=== PATIENT | male | born 1975 | race Caucasian/White ===

== ENCOUNTER 2017-02-25 06:12 | Inpatient (IN) | payer BC, OTHER ==
[2017-02-25] VITALS (28 sets, daily range): BP systolic 94–155; BP diastolic 69–96; PULSE 65–108; TEMP 36.7–37; O2SAT 94–98; Ht 177.8 cm; Wt 100.6 kg
[~2017-02-25] VITALS: Ht 177.8 cm; Wt 100.6 kg
[~2017-02-25 06:12] MED LIST: ALLO300T2 PO; HYDR-4715 PO; PRED-301 PO; SIMV20TA2 PO
[2017-02-25] MEDS ORDERED: DEXAMETHASONE INJ 10 MG in SYRINGE 0 ML IV STA (06:34)
[2017-02-25] MEDS ORDERED: SODIUM CHLORIDE 0.9% 1000ML 1,000 ML IV STA (06:34)
[2017-02-25] MEDS ORDERED: DiphenhydrAMINE HCL 50 MG/ML VIAL IV STA (06:34)
[2017-02-25] MEDS ORDERED: FAMOTIDINE 20MG/5ML IV PUSH IV STA (06:34)
--- NOTE | 2017-02-25 06:37 | EMERGENCY ROOM VISIT NOTE ---
History Report prepared by Princess: Shivam Echeverria Under the Supervision of: Dr. Zohaib Olmos M.D. First contact with patient: 06:25 Chief Complaint: THROAT PAIN/INJURY Stated Complaint: THROAT SWELLING,GETTING WORSE History of Present Illness The patient is a 42 year old male who presents to the Emergency Room with complaints of worsening throat swelling this morning. He says that he is having trouble speaking. The patient notes that he is on Lisinopril. The patient adds that he has had 2 episodes like this in the past, and has been seen for it, and was prescribed an EpiPen and daily Verena. He notes that he did not use his EpiPen this morning, but did take Benadryl and Prednisone an hour ago. The patient has not taken any Ibuprofen in the past 24 hours. He says that he is in end stage renal disease, and is close to being on dialysis. He notes that he is a bit short of breath due to the swelling, but it is not too bad. Source of History: patient Onset: This morning Position: throat Symptom Intensity: has had 2 episodes like this in past Quality: other (swelling) Timing: worsening Associated Symptoms: + SOB Note: Associated symptoms: trouble speaking. Review of Systems See HPI for pertinent positives & negatives. A total of 10 systems reviewed and were otherwise negative. Past Medical & Surgical Medical Problems: (1) Chronic kidney disease Family History Cancer FH: hypertension Heart disease Lung disease Social History Smoking Status: Never Smoker Marital Status: Housing Status: lives with family Occupation Status: employed Current/Historical Medications Scheduled Allopurinol (Zyloprim), 300 MG PO DAILY Epoetin Aiden (Procrit), 10,000 UNITS SQ WK Furosemide (Lasix), Unknown Dose PO 3XWK Hydralazine Hcl (Apresoline), Unknown Dose PO BID Prednisone (Prednisone), 5 MG PO DAILY Simvastatin (Zocor), 20 MG PO QPM Sodium Bicarbonate (Antacid) (Sodium Bicarbonate), 1 TAB PO BID Allergies Coded Allergies: NSAIDs (Verified Adverse Reaction, Severe, CHRONIC KIDNEY DISEASE, ) Physical Exam Vital Signs Date Time Temp Pulse Resp B/P (MAP) Pulse Ox O2 Delivery O2 Flow Rate FiO2 02/25/17 08:16 78 20 135/92 96 Room Air 02/25/17 08:09 98 Room Air 02/25/17 07:39 65 18 98 Room Air 02/25/17 07:25 73 22 131/85 97 Room Air 02/25/17 06:54 72 02/25/17 06:54 98 Room Air 02/25/17 06:28 90 21 136/91 96 Room Air 02/25/17 06:16 36.4 85 22 156/90 95 Room Air Physical Exam GENERAL: Patient is a ill-appearing well-nourished 42 year old male. HEAD: Normocephalic atraumatic EYES: Ocular movements intact pupils equal and react to light OROPHARYNX: Uvula is huge, mucous membranes are moist. NECK: Supple no nuchal rigidity CHEST: Good equal expansion LUNGS: Clear and equal to auscultation CARDIAC: Normal S1 and S2 ABDOMEN: Soft nontender no guarding BACK: No CVA tenderness EXTREMITIES: No pain upon palpation normal muscle strength in all groups no clubbing cyanosis or edema NEURO: Patient is following commands and answering questions appropriately. Alert and oriented x3 Cranial Nerves 2-12 grossly intact Medical Decision & Procedures ER Provider Diagnostic Interpretation: Radiology results as stated below per my review and radiologist interpretation: SOFT TISSUE NECK CLINICAL HISTORY: Pt c/o throat swelling COMPARISON STUDY: None. FINDINGS: AP and lateral views of the neck. Prevertebral soft tissues and the epiglottis are normal in thickness. There is bilateral palatine tonsillar enlargement. There appears to be thickening of the soft palate. No radiopaque foreign bodies. The trachea is midline and appears patent. IMPRESSION: Thickening of the bilateral palatine tonsils and soft palate. This favors a tonsillitis. Electronically signed by: Gordo Christine M.D. 02/25/2017 7:47 AM Dictated Date/Time: 02/25/2017 7:46 AM CHEST ONE VIEW PORTABLE HISTORY: Pt c/o throat swelling COMPARISON: Chest 03/16/2016. FINDINGS: The lungs are clear. Cardiac silhouette is normal in size. No pleural effusions. No pneumothorax. Low lung volumes. IMPRESSION: No acute process. Electronically signed by: Gordo Christine M.D. 02/25/2017 7:48 AM Dictated Date/Time: 02/25/2017 7:47 AM Laboratory Results 02/25/17 06:46 Red Blood Count 3.21, Mean Corpuscular Volume 90.3, Mean Corpuscular Hemoglobin 29.3, Mean Corpuscular Hemoglobin Concent 32.4, Mean Platelet Volume 9.1, Neutrophils (%) (Auto) 74.5, Lymphocytes (%) (Auto) 15.1, Monocytes (%) (Auto) 4.2, Eosinophils (%) (Auto) 4.5, Basophils (%) (Auto) 0.6, Neutrophils # (Auto) 9.23, Lymphocytes # (Auto) 1.88, Monocytes # (Auto) 0.52, Eosinophils # (Auto) 0.56, Basophils # (Auto) 0.08 02/25/17 06:46 Test 02/25/17 06:46 White Blood Count 12.41 K/uL (4.8-10.8) Red Blood Count 3.21 M/uL (4.7-6.1) Hemoglobin 9.4 g/dL (14.0-18.0) Hematocrit 29.0 % (42-52) Mean Corpuscular Volume 90.3 fL (80-100) Mean Corpuscular Hemoglobin 29.3 pg (25-34) Mean Corpuscular Hemoglobin Concent 32.4 g/dl (32-36) Platelet Count 243 K/uL (130-400) Mean Platelet Volume 9.1 fL (7.4-10.4) Neutrophils (%) (Auto) 74.5 % Lymphocytes (%) (Auto) 15.1 % Monocytes (%) (Auto) 4.2 % Eosinophils (%) (Auto) 4.5 % Basophils (%) (Auto) 0.6 % Neutrophils # (Auto) 9.23 K/uL (1.4-6.5) Lymphocytes # (Auto) 1.88 K/uL (1.2-3.4) Monocytes # (Auto) 0.52 K/uL (0.11-0.59) Eosinophils # (Auto) 0.56 K/uL (0-0.5) Basophils # (Auto) 0.08 K/uL (0-0.2) RDW Standard Deviation 47.5 fL (36.4-46.3) RDW Coefficient of Variation 14.4 % (11.5-14.5) Immature Granulocyte % (Auto) 1.1 % Immature Granulocyte # (Auto) 0.14 K/uL (0.00-0.02) Anion Gap 13.0 mmol/L (3-11) Estimated GFR () 12.9 Estimated GFR (Non- 11.1 BUN/Creatinine Ratio 15.2 (10-20) Calcium Level 9.5 mg/dl (8.5-10.1) Phosphorus Level 4.5 mg/dl (2.5-4.9) Albumin 3.4 gm/dl (3.4-5.0) Labs reviewed by ED physician. Medications Administered Medications (Trade) Dose Ordered Sig/Sheron Route Start Time Stop Time Status Last Admin Dose Admin Dexamethasone Sodium Phosphate 10 mg/Syringe 2.5 ml @ 1 mls/min NOW STAT IV 02/25/17 06:34 02/25/17 06:38 DC 02/25/17 06:43 1 MLS/MIN Famotidine (Pepcid 20mg Iv Push) 20 mg ONE STAT IV 02/25/17 06:34 02/25/17 06:39 DC 02/25/17 06:47 20 MG Diphenhydramine HCl (Benadryl Inj) 25 mg NOW STAT IV 02/25/17 06:34 02/25/17 06:39 DC 02/25/17 06:45 25 MG Sodium Chloride 1,000 ml @ 999 mls/hr Q1H1M STAT IV 02/25/17 06:34 02/25/17 07:34 DC 02/25/17 06:52 999 MLS/HR Racepinephrine (Raccemic Epinephrine 2.25% 0.5ML Neb) 0.5 ml NOW STAT INH 02/25/17 07:19 02/25/17 07:20 DC 02/25/17 07:39 0.5 ML ED Course 0632: Past medical records reviewed. The patient was evaluated in room A4B. A complete history and physical examination was performed. 0634: Ordered NSS 1000 ml @ 999 mls/hr IV, Benadryl Inj 25 mg IV, Pepcid 20mg IV Push 20 mg, Dexamethasone Sodium Phosphate 10mg/Syringe 2.5 ml @ 1 mls/min IV. 0649: I reevaluated and updated the patient. 0718: I discussed the patient with Dr. Irvin Clarke spar cap beveler. 0719: Ordered Raccemic Epinephrine 2.25% 0.5ML Neb 0.5 ml INH. 0725: I reevaluated and updated the patient. He is resting and doing a bit better. The patient verbally expressed understanding and agreement of the treatment plan. He will be evaluated for further treatment in the ICU. 0728: I discussed the patient with Dr. Jakub Clarke nephrology. 0730: I discussed the patient with Dr. Oscar CARY critical care - he will evaluate the patient for further treatment. Medical Decision Differential diagnosis: Etiologies such as infections, reactive airway disease, pneumonia, pneumothorax , COPD, CHF, cardiac ischemia, pulmonary embolism, musculoskeletal, gastrointestinal, as well as others were entertained. This is a 42-year-old male who presents emergency department complaining of severe swelling to his uvula. The patient is on an LEATHA inhibitor and reports he is had previous swelling before to his lips. Because of the patient's past medical history as well as his presentation a type and screen was obtained. In addition his creatinine appears to be 5 and appears to be above his baseline. An IV was established, the patient was given normal saline bolus, Decadron, Benadryl and Pepcid. Due to the nature the presentation I did discuss the case with the ICU and the patient received racemic epinephrine. He was also discussed with the hospitalist service as well as nephrology. Patient was in agreement with the treatment plan. Consults Time Called: 0715 Consulting Physician: Dr. Irvin Clarke spar cap beveler Returned Call: 0718 I discussed the patient with Dr. Irvin Clarke spar cap beveler. Additional Consults: Time Called: 07 Consulted Physician: Dr. Jakub Clarke nephrology Returned Call: 0728 Additional Comments: I discussed the patient with Dr. Jakub Clarke nephrology. Time Called: 07 Consulted Physician: Dr. Oscar CARY critical care Returned Call: 0730 Additional Comments: I discussed the patient with Dr. Oscar CARY critical care - he will evaluate the patient for further treatment. Impression Primary Impression: Angioedema Critical Care I have personally spent greater than 30 minutes of critical care time in the direct management of this patient. This includes bedside care, interpretation of diagnostic studies, and testing, discussion with consultants, patient, and family members, and other required patient management activities. This 30 minutes is in excess of all separately billable procedures. Scribe Attestation The scribe's documentation has been prepared under my direction and personally reviewed by me in its entirety. I confirm that the note above accurately reflects all work, treatment, procedures, and medical decision making performed by me. Departure Information Dispostion Being Evaluated By Hospitalist (to ICU) Referrals Austyn Leo M.D. (PCP) Patient Instructions My [facility] Problem Qualifiers Primary Impression: Angioedema Encounter type: initial encounter Qualified Codes: T78.3XXA - Angioneurotic edema, initial encounter
[2017-02-25] MEDS ORDERED: DEXAMETHASONE SOD INJ 4 MG/ML VIAL ONE (06:40)
[2017-02-25 06:57] LABS: BASO % 0.6 %; BASO ABS # 0.08 K/uL (0-0.2); COMPLETE YES; EOS % 4.5 %; IG% 1.1 %; LYMPH % 15.1 %; LYMPH ABS # 1.88 K/uL (1.2-3.4); MEAN CELL VOLUME 90.3 fL (80-100); MEAN CORPUSCULAR HEMOGLOBIN 29.3 pg (25-34); MEAN CORPUSCULAR HGB CONC 32.4 g/dl (32-36); MEAN PLATELET VOLUME 9.1 fL (7.4-10.4); MONO % 4.2 %; NEUT % 74.5 %; PLATELET COUNT 243 K/uL (130-400); RED BLOOD COUNT 3.21 M/uL (4.7-6.1); WHITE BLOOD COUNT 12.41 K/uL (4.8-10.8)
[2017-02-25] MEDS ORDERED: RACEPINEPHRINE 2.25% NEBU SOLN 0.5 ML VIAL INH STA (07:19)
[2017-02-25 07:24] LABS: BLOOD UREA NITROGEN 88 mg/dl (7-18); BUN/CREATININE RATIO 15.2 (10-20); CALCIUM 9.5 mg/dl (8.5-10.1); CARBON DIOXIDE 17 mmol/L (21-32); CHLORIDE 111 mmol/L (98-107); CREATININE 5.82 mg/dl (0.60-1.40); GLUCOSE 90 mg/dl (70-99); PHOSPHORUS 4.5 mg/dl (2.5-4.9); POTASSIUM 4.6 mmol/L (3.5-5.1); SODIUM 140 mmol/L (136-145)
--- NOTE | 2017-02-25 07:49 | DIAGNOSTIC IMAGING REPORT ---
SOFT TISSUE NECK CLINICAL HISTORY: Pt c/o throat swelling COMPARISON STUDY: None. FINDINGS: AP and lateral views of the neck. Prevertebral soft tissues and the epiglottis are normal in thickness. There is bilateral palatine tonsillar enlargement. There appears to be thickening of the soft palate. No radiopaque foreign bodies. The trachea is midline and appears patent. IMPRESSION: Thickening of the bilateral palatine tonsils and soft palate. This favors a tonsillitis. Electronically signed by: Gordo Chritsine M.D. 02/25/2017 7:47 AM Dictated Date/Time: 02/25/2017 7:46 AM
--- NOTE | 2017-02-25 07:50 | DIAGNOSTIC IMAGING REPORT ---
CHEST ONE VIEW PORTABLE HISTORY: Pt c/o throat swelling COMPARISON: Chest 03/16/2016. FINDINGS: The lungs are clear. Cardiac silhouette is normal in size. No pleural effusions. No pneumothorax. Low lung volumes. IMPRESSION: No acute process. Electronically signed by: Gordo Christine M.D. 02/25/2017 7:48 AM Dictated Date/Time: 02/25/2017 7:47 AM
[2017-02-25] MEDS ORDERED: FURO20TA PO (07:55)
[2017-02-25] MEDS ORDERED: EPGI10M SQ (07:57)
[2017-02-25] MEDS ORDERED: SODI650T8 PO (07:57)
[2017-02-25] MEDS ORDERED: NITROGLYCERIN 0.4 MG SL PER TAB CHARGE SL PRN (08:30)
[2017-02-25] MEDS ORDERED: FAMOTIDINE IV INJ 20 MG in DEXTROSE 5% 100ML 100 ML IV SCH (08:30)
[2017-02-25] MEDS ORDERED: DiphenhydrAMINE HCL 50 MG/ML VIAL IV PRN (08:30)
[2017-02-25] MEDS ORDERED: SIMV40TA4 PO (09:02)
[2017-02-25] MEDS ORDERED: FEXO1TAB46 PO (09:02)
[2017-02-25] MEDS ORDERED: BENA10TA PO (09:02)
[2017-02-25] MEDS ORDERED: DIPH25CA65 PO (09:02)
[2017-02-25] MEDS ORDERED: FURO-85 PO (09:11)
[2017-02-25] MEDS: ALLOPURINOL 300 MG TAB PO SCH (10:46)
[2017-02-25] MEDS: CETIRIZINE HCL 10 MG TAB PO SCH (10:46)
[2017-02-25] MEDS: SODIUM BICARBONATE 650 MG TAB PO SCH ×2 (10:46→20:34)
[2017-02-25] MEDS: HydrALAZINE 10 MG TAB PO SCH ×2 (10:47→20:34)
--- NOTE | 2017-02-25 11:04 | HISTORY & PHYSICAL EXAMINATION ---
DATE OF ADMISSION: 02/25/2017 CHIEF COMPLAINT: Angioedema. HISTORY OF PRESENT ILLNESS: This is a 42-year-old male with a past medical history significant for MPGN with type 1 chronic glomerulonephritis, chronic kidney disease stage V, history of anemia due to chronic kidney disease, history of angioedema, history of allergic rhinitis, history of hypertension, hyperlipidemia, and gouty arthropathy, who presents with angioedema. The patient last night felt swelling in the throat and was having somewhat difficulty speaking and shortness of breath and came to the ER. In the ER, he was given Decadron and Benadryl and currently his symptoms improved, he is breathing okay and his speech has improved, but he still has some difficulty swallowing. The patient says he had couple of episodes of lip swelling in the past, thought to be secondary to from his benazepril medication, but since off of benazepril making his blood pressure difficult to control. He was placed back on benazepril and also placed on Verena and Benadryl p.r.n. and epinephrine injections p.r.n. Last night, he did not take any medication and he just came to the ER. Currently, resting comfortably and hemodynamically stable. Denies any headaches or dizziness. No blurred vision, no cough, no nausea, no vomiting, no chest pain, no abdominal pain, no fever, and no chills. Normal bowel and bladder movements. Resting comfortably and hemodynamically stable. ALLERGIES: NSAIDS. PAST MEDICAL HISTORY: As mentioned above. PAST SURGICAL HISTORY: removal of basal cell skin lesions and right kidney biopsy. MEDICATIONS: The patient is on benazepril 10 mg p.o. b.i.d.; Procrit 1000 units once a week; hydralazine 10 mg p.o. b.i.d.; sodium bicarbonate 650 mg p.o. b.i.d.; allopurinol 300 mg p.o. daily; Lasix 20 mg p.o. once daily on Sunday, Sunday and Sunday; prednisone 5 mg p.o. daily; simvastatin 40 mg p.o. daily; fexofenadine 180 mg p.o. daily; Benadryl 50 mg p.r.n. allergic reaction; and epinephrine for severe allergic reaction. FAMILY HISTORY: Significant for sister has seasonal rhinitis. Mother has Hodgkin's lymphoma, high cholesterol, diverticulitis, heart disorder and hypertension. SOCIAL HISTORY: Former smoker, quit in 2004, prior to that smoked half a pack a day for 7 years. Alcohol 1 beer a day. No drug use. REVIEW OF SYMPTOMS: As per HPI. Rest of review of systems negative. PHYSICAL EXAMINATION: GENERAL: The patient is of moderate build, not in distress. VITAL SIGNS: Temperature 36.4, pulse 78, respiratory rate 20, blood pressure 135/92, and oxygen 96% on room air. HEENT: No pallor. No icterus. Pupils equal, round, and reactive to light. has swelling of the uvula and pharynx region. NECK: No JVD, no neck masses, and no carotid bruits. CARDIOVASCULAR: S1, S2 heard, regular rate and rhythm, no murmur, no gallop. RESPIRATORY SYSTEM: Normal AP diameter. No accessory muscle use. Clear to auscultation bilaterally. No wheezing, no crackles. ABDOMEN: Soft, bowel sounds present. Nontender. No distention. CENTRAL NERVOUS SYSTEM: Cranial nerves II-XII grossly intact. Nonfocal. EXTREMITIES: No edema and no erythema. LABORATORY DATA: WBC 12.4, hemoglobin 9.4, hematocrit 29, and platelets 243. Sodium 140, potassium 4.6, chloride 111, bicarbonate 17, BUN is 88, creatinine 5.8, serum glucose 90, calcium 9.5, and phosphorus 4.5. IMAGING DATA: Soft tissue neck x-ray - thickening of the bilateral palatine tonsils and soft palate . Chest x-ray - no acute process seen. ASSESSMENT AND PLAN: This is a 42-year-old male who presents with angioedema of throat. 1. Angioedema. The patient says he has allergic reactions in the past, but only has lip swelling, never had throat swelling and his benazepril was continued because it was difficult to control his blood pressure and was placed on Verena daily and Benadryl and epinephrine p.r.n. The patient received IV Decadron, IV Benadryl and pepcid in the ER. Also received racepinephrine We will continue with IV Solu-Medrol and IV Pepcid, Claritin and Benadryl p.r.n. and will closely monitor in the ICU. Will hold benazepril. 2. History of hypertension. The patient is on hydralazine and benazepril. We will hold the benazepril for possible causing allergic reaction and history of allergic reaction. The patient says he has had difficulty controlling blood pressure when benazepril was stopped, so we will consult nephrology to help with blood pressure control. 3. Chronic kidney disease, stage V, not on dialysis yet. The patient states if he goes for dialysis he will go for peritoneal dialysis. Nephrology consulted as above. 4. Hyperlipidemia. Continue statin. 5. Deep vein thrombosis prophylaxis, SCDs and TEDs for now. 6. Disposition: Admit to closely monitor in the ICU. Level 1 full code. MTDD
--- NOTE | 2017-02-25 16:01 | NEPHROLOGY CONSULTATION ---
DATE OF CONSULTATION: 02/25/2017 REASON FOR CONSULT: The patient with CKD stage V and MPGN type 1 with angioedema. HISTORY OF PRESENT ILLNESS: The patient is a 42-year-old male with a past medical history of MPGN Type 1, chronic glomerulonephritis, CKD stage V with the most recent GFR of 11 as well as multiple other medical problems. He presented to the Emergency Department earlier today because of unable to speak and throat swelling as well as shortness of breath. In the Emergency Department, he was noted to have significant edema in the oral cavity as well as uvula for which he was given Decadron and Benadryl. Since then, his breathing has improved and he is able to speak now. The patient was on Benazepril as an outpatient and according to the patient, he has had a couple of episodes of lip swelling in the past, but has never had a severe problem like today. At this time, he is being monitored in the intensive care unit, but appears quite comfortable and stable. He is no longer short of breath and his blood pressure is acceptable with the most recent reading of 144/94. ALLERGIES: NSAIDs AND NOW DEFINITELY LEATHA inhibitor. PAST MEDICAL HISTORY: As mentioned above. PAST SURGICAL HISTORY: Removal of basal cell skin lesions and right kidney biopsy. MEDICATIONS: At home included benazepril 10 mg twice daily; Procrit once a week; hydralazine; sodium bicarbonate; allopurinol; Lasix 20 mg Sunday, Sunday, Sunday; prednisone 5 daily; simvastatin 40 mg daily; Verena 180 daily. FAMILY HISTORY: Significant for sister with seasonal rhinitis, mother has Hodgkin's lymphoma, hyperlipidemia, diverticulitis, heart disease, and hypertension. SOCIAL HISTORY: Former smoker. He quit in 2004. Prior to that smoked half a pack for 7 years, about 1-2 beer a day. No drugs. REVIEW OF SYSTEMS: As detailed in HPI. A total of 12 systems reviewed and negative. PHYSICAL EXAMINATION: GENERAL: Moderately built at the time of examination. He was not in any distress and he was able to speak full sentences in a normal clear voice. VITAL SIGNS: Blood pressure 126/87, 96% on room air, pulse rate 88, temperature 36.7. HEENT: Mucous membrane is moist. NECK: Supple. No jugular venous distention. CHEST: Bilateral clear to auscultation. CARDIOVASCULAR: S1, S2 heard. Regular rate and rhythm, no murmurs, rubs or gallops. ABDOMEN: Soft, bowel sounds present. Nontender. No distention. NEUROLOGIC: Moving all 4 extremities. Normal speech, nonfocal. EXTREMITIES: No edema, no erythema. LABORATORY TESTS: WBC count 12.4, hemoglobin 9.4, hematocrit 29, platelet 243. Sodium 140, potassium 4.6, chloride 111, bicarbonate 17, BUN 88, creatinine 5.8, GFR is 11. ASSESSMENT AND PLAN: 1. Angioedema. The patient was on benazepril and has had some lip swelling in the past. To me this is an absolute contraindication of using LEATHA inhibitor regardless of what disease he has and how his blood pressure is. I would not even use an angiotensin-receptor andree in his case, given the severity of the angioedema. 2. Hypertension. This can be managed with multiple other medications. He has only been exposed to hydralazine and benazepril in his lifetime. There are multiple other agents that can be used and tried. 3. Chronic kidney disease stage V. Current GFR is 11. Most recent GFR was also 11 according to the patient. No acute workup needed from the renal standpoint. 4. For the time being as an inpatient, which probably will be fairly short, I would not give or add any new blood pressure medicine even if the blood pressure is somewhat high at least till tomorrow. JOSÉ MIGUELD
[2017-02-25] MEDS: FAMOTIDINE IV INJ 20 MG in SYRINGE 3 ML IV SCH (17:57)
--- NOTE | 2017-02-25 20:29 | Critical Care Consultation ---
Critical Care Consultation Date of Consultation: Feb 25, 2017. Attending Physician: Paul Bryan MD Reason for Consultation: angioedema History of Present Illness Patient is a 42-year-old male with chronic kidney disease on LEATHA inhibitor who presents today with difficulty swallowing. He reports that he has been taken off his LEATHA inhibitor twice in the past for angioedema which is limited to the lips. He is otherwise placed back on per report that he is seen allergists and they recommend continued treatment for renal protection with the hope that angioedema does not recur. When seen in the ED he was having mild difficulty with his secretions, he took steroids and Benadryl last night. Per report from the ED attending physician the swelling of the uvula has gone down since his arrival. With the assistance of anesthesia we took a nasopharyngeal scope and looked at the upper airway. The uvula exhibits angioedema however the epiglottis is crisp without edema and the vocal cords were visualized without edema either. Past Medical/Surgical History Chronic kidney disease Anemia, Hypertension Angioedema Family History Cancer FH: hypertension Heart disease Lung disease Social History Smoking Status: Former Smoker Marital Status: Housing Status: lives with family Occupation Status: employed Allergies Coded Allergies: NSAIDs (Verified Adverse Reaction, Severe, CHRONIC KIDNEY DISEASE, ) Home Medications Scheduled Allopurinol (Zyloprim), 300 MG PO DAILY Benazepril Hcl (Lotensin), 1 TAB PO BID Epoetin Aiden (Procrit), 10,000 UNITS SQ WK Fexofenadine Hcl (Verena), 180 MG PO DAILY Furosemide (Lasix), 20 MG PO 3XWK Hydralazine Hcl (Apresoline), Unknown Dose PO BID Prednisone (Prednisone), 5 MG PO DAILY Simvastatin (Zocor), 1 TAB PO HS Sodium Bicarbonate (Antacid) (Sodium Bicarbonate), 1 TAB PO BID Scheduled PRN Diphenhydramine Hcl (Benadryl Allergy), 2 CAP PO prn PRN for allergic reaction Current Inpatient Medications Current Inpatient Medications Medications (Trade) Dose Ordered Sig/Sheron Route Start Time Stop Time Status Last Admin Dose Admin Nitroglycerin (Nitrostat Tab) 0.4 mg UD PRN SL 02/25/17 08:30 03/27/17 08:29 Allopurinol (Zyloprim Tab) 300 mg DAILY PO 02/25/17 09:00 03/27/17 08:59 02/25/17 10:46 300 MG Hydralazine HCl (Apresoline Tab) 10 mg BID PO 02/25/17 09:00 03/27/17 08:59 02/25/17 10:47 10 MG Sodium Bicarbonate (Sodium Bicarbonate Tab) 650 mg BID PO 02/25/17 09:00 03/27/17 08:59 02/25/17 10:46 650 MG Diphenhydramine HCl (Benadryl Inj) 25 mg TID PRN IV 02/25/17 08:30 03/27/17 08:29 Cetirizine HCl (zyrTEC TAB) 10 mg QAM PO 02/25/17 09:00 03/27/17 08:59 02/25/17 10:46 10 MG Methylprednisolone Sodium Succinate 40 mg/Syringe 0.64 ml @ 1.5 mls/min BID IV 02/25/17 21:00 03/27/17 20:59 Furosemide (Lasix Tab) 20 mg MoWeFr@0900 PO 02/26/17 09:00 03/28/17 08:59 Famotidine 20 mg/ Syringe 5 ml @ 2.5 mls/min Q12H IV 02/25/17 18:00 03/27/17 17:59 02/25/17 17:57 2.5 MLS/MIN Review of Systems 10 point of review of systems is reviewed and is otherwise negative Constitutional: No fever, No chills, No sweats Respiratory: No cough, No sputum, No wheezing Cardiovascular: No chest pain, No orthopnea Integumentary: No rash Allergic / Immunologic: + problem reported (prior angioedema) Physical Exam Date Time Temp Pulse Resp B/P (MAP) Pulse Ox O2 Delivery O2 Flow Rate FiO2 02/25/17 18:02 37.0 95 20 125/88 (100) 98 Room Air 02/25/17 18:01 106 16 125/88 (97) 98 02/25/17 18:00 95 15 96 02/25/17 17:01 100 16 130/83 (94) 94 02/25/17 17:00 88 14 96 02/25/17 16:01 91 16 130/87 (95) 96 02/25/17 16:00 88 19 94 02/25/17 15:24 36.9 89 20 132/87 (102) 96 Room Air 02/25/17 15:20 Room Air 02/25/17 15:01 88 18 132/87 (101) 96 02/25/17 15:00 97 19 97 02/25/17 14:01 98 15 144/94 (100) 95 02/25/17 14:00 98 20 98 02/25/17 13:01 87 20 134/87 (99) 97 02/25/17 13:00 84 18 96 02/25/17 12:01 82 17 136/92 (102) 96 02/25/17 12:00 82 23 97 02/25/17 11:30 Room Air 02/25/17 11:30 36.7 88 20 126/87 (100) 96 Room Air 02/25/17 11:01 87 21 126/87 (99) 96 02/25/17 11:00 83 19 96 02/25/17 09:15 36.7 95 20 155/87 (109) 96 Room Air 02/25/17 08:47 78 20 135/92 96 02/25/17 08:16 78 20 135/92 96 Room Air 02/25/17 08:09 98 Room Air 02/25/17 07:39 65 18 98 Room Air 02/25/17 07:25 73 22 131/85 97 Room Air 02/25/17 06:54 72 02/25/17 06:54 98 Room Air 02/25/17 06:28 90 21 136/91 96 Room Air 02/25/17 06:16 36.4 85 22 156/90 95 Room Air General Appearance: well-appearing, no apparent distress Head: normocephalic, atraumatic Eyes: PERRLA, no discharge ENT: other Neck: normal range of motion, no tenderness, trachea midline Respiratory: breath sounds normal Cardiovasular: regular rate/rhythm, normal S1S2 Abdomen: non tender Laboratory Results Last 24 Hours Test 02/25/17 06:46 White Blood Count 12.41 K/uL Red Blood Count 3.21 M/uL Hemoglobin 9.4 g/dL Hematocrit 29.0 % Mean Corpuscular Volume 90.3 fL Mean Corpuscular Hemoglobin 29.3 pg Mean Corpuscular Hemoglobin Concent 32.4 g/dl Platelet Count 243 K/uL Mean Platelet Volume 9.1 fL Neutrophils (%) (Auto) 74.5 % Lymphocytes (%) (Auto) 15.1 % Monocytes (%) (Auto) 4.2 % Eosinophils (%) (Auto) 4.5 % Basophils (%) (Auto) 0.6 % Neutrophils # (Auto) 9.23 K/uL Lymphocytes # (Auto) 1.88 K/uL Monocytes # (Auto) 0.52 K/uL Eosinophils # (Auto) 0.56 K/uL Basophils # (Auto) 0.08 K/uL RDW Standard Deviation 47.5 fL RDW Coefficient of Variation 14.4 % Immature Granulocyte % (Auto) 1.1 % Immature Granulocyte # (Auto) 0.14 K/uL Sodium Level 140 mmol/L Potassium Level 4.6 mmol/L Chloride Level 111 mmol/L Carbon Dioxide Level 17 mmol/L Anion Gap 13.0 mmol/L Blood Urea Nitrogen 88 mg/dl Creatinine 5.82 mg/dl Estimated GFR () 12.9 Estimated GFR (Non- 11.1 BUN/Creatinine Ratio 15.2 Random Glucose 90 mg/dl Calcium Level 9.5 mg/dl Phosphorus Level 4.5 mg/dl Albumin 3.4 gm/dl Assessment & Plan #1 angioedema - Patient is on an LEATHA inhibitor, discontinue LEATHA inhibitor - This is the third events of angioedema all associated with LEATHA inhibitor use - I did not feel additional workup is warranted at this time especially with the patient reporting that 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 I have personally spent 35 minutes of critical care time in the direct management of this patient. This is a life/limb threatening event. This includes time spent evaluating patient, direct bedside care, chart review, placing orders, interpretation of diagnostic studies, discussion with consultants, patient, and family members, as well as other required patient management activities. This time is exclusive of all separately billable procedures, and teaching time and separate from and in addition to any other critical care service time. Clinical up-to-date, patient was evaluated throughout the day as of 2029 this evening patient's uvula swelling has decreased.
[2017-02-25] MEDS: METHYLPREDNISOLONE IV 40 MG in SYRINGE 0 ML IV SCH (20:33)
[2017-02-25] MEDS ORDERED: SIMVASTATIN 20 MG TAB PO SCH (21:00)
[2017-02-26] VITALS (10 sets, daily range): BP systolic 107–132; BP diastolic 64–90; PULSE 75–100; TEMP 36.6–36.7; O2SAT 91–98
[2017-02-26] MEDS: FAMOTIDINE IV INJ 20 MG in SYRINGE 3 ML IV SCH (05:20)
[2017-02-26 05:50] LABS: HEMATOCRIT 27.3 % (42-52); MEAN CELL VOLUME 89.5 fL (80-100); MEAN CORPUSCULAR HEMOGLOBIN 29.5 pg (25-34); MEAN PLATELET VOLUME 9.9 fL (7.4-10.4); PLATELET COUNT 242 K/uL (130-400); RED BLOOD COUNT 3.05 M/uL (4.7-6.1); WHITE BLOOD COUNT 15.15 K/uL (4.8-10.8)
[2017-02-26 06:15] LABS: BASO % 0.1 %; BASO ABS # 0.01 K/uL (0-0.2); COMPLETE YES; IG% 0.7 %; LYMPH % 5.7 %; LYMPH ABS # 0.87 K/uL (1.2-3.4); MONO % 4.1 %; NEUT % 89.4 %
[2017-02-26 06:35] LABS: BUN/CREATININE RATIO 14.9 (10-20); CREATININE 5.95 mg/dl (0.60-1.40); MAGNESIUM 1.6 mg/dl (1.8-2.4); PHOSPHORUS 4.8 mg/dl (2.5-4.9); POTASSIUM 5.4 mmol/L (3.5-5.1)
--- NOTE | 2017-02-26 07:23 | Nephrology Progress Note ---
Nephrology Progress Note Date of Service: Feb 26, 2017. Subjective 42 yo male with ckd stage 5 not on dialysis. main complaint prior to coming in was fatigue. has been stable with a gfr of 11 and on active transplant list. pt presented with angioedema. complaining of a sore throat. Objective Date Time Temp Pulse Resp B/P (MAP) Pulse Ox O2 Delivery O2 Flow Rate FiO2 02/26/17 06:00 36.7 75 17 110/68 (82) 93 Room Air 02/26/17 04:00 98 Room Air 02/26/17 03:01 100 17 107/64 (78) 92 02/26/17 02:01 83 16 124/70 (88) 95 02/26/17 01:01 75 18 115/68 (84) 91 02/26/17 00:01 91 23 116/64 (81) 94 Room Air 02/25/17 23:59 98 Room Air 02/25/17 23:01 37.0 89 22 119/69 (86) 94 Room Air 02/25/17 22:01 84 22 94/70 (78) 95 Room Air 02/25/17 21:01 108 20 139/96 (110) 96 Room Air 02/25/17 20:01 36.9 106 17 126/88 (101) 97 Room Air 02/25/17 20:00 98 Room Air 02/25/17 18:02 37.0 95 20 125/88 (100) 98 Room Air 02/25/17 18:01 106 16 125/88 (97) 98 02/25/17 18:00 95 15 96 02/25/17 17:01 100 16 130/83 (94) 94 02/25/17 17:00 88 14 96 02/25/17 16:01 91 16 130/87 (95) 96 02/25/17 16:00 88 19 94 02/25/17 15:24 36.9 89 20 132/87 (102) 96 Room Air 02/25/17 15:20 Room Air 02/25/17 15:01 88 18 132/87 (101) 96 02/25/17 15:00 97 19 97 02/25/17 14:01 98 15 144/94 (100) 95 02/25/17 14:00 98 20 98 02/25/17 13:01 87 20 134/87 (99) 97 02/25/17 13:00 84 18 96 02/25/17 12:01 82 17 136/92 (102) 96 02/25/17 12:00 82 23 97 02/25/17 11:30 Room Air 02/25/17 11:30 36.7 88 20 126/87 (100) 96 Room Air 02/25/17 11:01 87 21 126/87 (99) 96 02/25/17 11:00 83 19 96 02/25/17 09:15 36.7 95 20 155/87 (109) 96 Room Air 02/25/17 08:47 78 20 135/92 96 02/25/17 08:16 78 20 135/92 96 Room Air 02/25/17 08:09 98 Room Air 02/25/17 07:39 65 18 98 Room Air 02/25/17 07:25 73 22 131/85 97 Room Air Physical Exam: General-aaox3 Eyes-no scleral icterus ENT-mmm Neck-supple Lungs-clear Heart-regular Abdomen-bs+ s/nt/nd Extremities-no c/c/e Neuro-nonfocal Current Inpatient Medications Medications (Trade) Dose Ordered Sig/Sheron Route Start Time Stop Time Status Last Admin Dose Admin Nitroglycerin (Nitrostat Tab) 0.4 mg UD PRN SL 02/25/17 08:30 03/27/17 08:29 Allopurinol (Zyloprim Tab) 300 mg DAILY PO 02/25/17 09:00 03/27/17 08:59 02/25/17 10:46 300 MG Hydralazine HCl (Apresoline Tab) 10 mg BID PO 02/25/17 09:00 03/27/17 08:59 02/25/17 20:34 10 MG Sodium Bicarbonate (Sodium Bicarbonate Tab) 650 mg BID PO 02/25/17 09:00 03/27/17 08:59 02/25/17 20:34 650 MG Diphenhydramine HCl (Benadryl Inj) 25 mg TID PRN IV 02/25/17 08:30 03/27/17 08:29 Cetirizine HCl (zyrTEC TAB) 10 mg QAM PO 02/25/17 09:00 03/27/17 08:59 02/25/17 10:46 10 MG Methylprednisolone Sodium Succinate 40 mg/Syringe 0.64 ml @ 1.5 mls/min BID IV 02/25/17 21:00 03/27/17 20:59 02/25/17 20:33 1.5 MLS/MIN Furosemide (Lasix Tab) 20 mg MoWeFr@0900 PO 02/26/17 09:00 03/28/17 08:59 Famotidine 20 mg/ Syringe 5 ml @ 2.5 mls/min Q12H IV 02/25/17 18:00 03/27/17 17:59 02/26/17 05:20 2.5 MLS/MIN Last 24 Hours Test 02/25/17 22:57 02/26/17 05:22 Bedside Glucose 132 mg/dl White Blood Count 15.15 K/uL Red Blood Count 3.05 M/uL Hemoglobin 9.0 g/dL Hematocrit 27.3 % Mean Corpuscular Volume 89.5 fL Mean Corpuscular Hemoglobin 29.5 pg Mean Corpuscular Hemoglobin Concent 33.0 g/dl Platelet Count 242 K/uL Mean Platelet Volume 9.9 fL Neutrophils (%) (Auto) 89.4 % Lymphocytes (%) (Auto) 5.7 % Monocytes (%) (Auto) 4.1 % Eosinophils (%) (Auto) 0.0 % Basophils (%) (Auto) 0.1 % Neutrophils # (Auto) 13.55 K/uL Lymphocytes # (Auto) 0.87 K/uL Monocytes # (Auto) 0.62 K/uL Eosinophils # (Auto) 0.00 K/uL Basophils # (Auto) 0.01 K/uL RDW Standard Deviation 46.9 fL RDW Coefficient of Variation 14.4 % Immature Granulocyte % (Auto) 0.7 % Immature Granulocyte # (Auto) 0.10 K/uL Sodium Level 139 mmol/L Potassium Level 5.4 mmol/L Chloride Level 112 mmol/L Carbon Dioxide Level 14 mmol/L Anion Gap 13.0 mmol/L Blood Urea Nitrogen 91 mg/dl Creatinine 5.95 mg/dl Est Creatinine Clear Calc Drug Dose 19.6 ml/min Estimated GFR () 12.6 Estimated GFR (Non- 10.9 BUN/Creatinine Ratio 14.9 Random Glucose 123 mg/dl Calcium Level 9.0 mg/dl Phosphorus Level 4.8 mg/dl Magnesium Level 1.6 mg/dl Date/Time Source Procedure Growth Status 02/25/17 09:20 Nasal MRSA DNA Surveillance Screen - Final Specimen Negative for MRSA by DNA Probe Complete Assessment & Plan CKD stage 5-not on dialysis-not uremic except for fatigue. will follow as outpt. creatinine stable. on active transplant list. Anemia of Renal Failure-recently started on procrit and gets it weekly. to resume previous dosing at home. HTN: currently off ildefonso and will be off ildefonso permanently. bp today is good. will follow as outpt since likely will need more bp meds at home. did not like higher doses of hydralazine in the past. will likely need other agent. ok from renal perspective to go home once medically cleared.
[2017-02-26] MEDS: CETIRIZINE HCL 10 MG TAB PO SCH (08:49)
[2017-02-26] MEDS: ALLOPURINOL 300 MG TAB PO SCH (08:49)
[2017-02-26] MEDS: SODIUM BICARBONATE 650 MG TAB PO SCH (08:49)
[2017-02-26] MEDS: HydrALAZINE 10 MG TAB PO SCH (08:50)
[2017-02-26] MEDS: METHYLPREDNISOLONE IV 40 MG in SYRINGE 0 ML IV SCH (08:50)
[2017-02-26] MEDS ORDERED: FUROSEMIDE 20 MG TAB PO SCH (09:00)
[2017-02-26] MEDS: MAGNESIUM SULFATE 1GM / D5W 1 GM in PREMIXED IN D5W 100 ML IV SCH ×2 (09:09→10:15)
[2017-02-26] MEDS ORDERED: SODIUM POLYST. SULF SUSP 15G/60ML PO ONE (10:45)
[2017-02-26] MEDS ORDERED: PRED-301 PO (13:15)
[2017-02-26] MEDS ORDERED: RANI150T3 PO (13:15)
--- NOTE | 2017-02-26 13:18 | Discharge Instructions ---
Discharge Instructions Date of Service Feb 26, 2017. Admission Reason for Admission: Angioedema Discharge Discharge Diagnosis / Problem: angioedema Discharge Goals Goal(s): Decrease discomfort Activity Recommendations Activity Limitations: resume your previous activity . Instructions / Follow-Up Instructions / Follow-Up FOLLOWUP WITH FAMILY DOCTOR Narda Hernandez ON Mar AT 8:45AM. FOLLOWUP WITH NEPHROLOGY SCHEDULED. TO CHECK BLOOD PRESSURE DAILY AND NOTIFY FAMILY DOCTOR OR IF ELEVATED. LAB: BMP IN 3-4 DAYS AND FOLLOW RESULTS WITH FAMILY DOCTOR/NEPHROLOGY Current Hospital Diet Patient's current hospital diet: Renal Diet Discharge Diet Recommended Diet: AHA Diet (Heart Healthy), Renal Diet, Low Potassium Diet (2g K) Pending Studies Studies pending at discharge: no Medical Emergencies . Who to Call and When: Medical Emergencies: If at any time you feel your situation is an emergency, please call 911 immediately. . Non-Emergent Contact Non-Emergency issues call your: Primary Care Provider . . "Provider Documentation" section prepared by Paul Bryan. . VTE Core Measure Inpt VTE Proph given/why not?: SCD's
--- NOTE | 2017-02-26 16:36 | Progress Note ---
Internal Med Progress Note Date of Service: Feb 26, 2017. Provider Documentation: SUBJECTIVE: resting comfortably afebrile no sob swelling in throat resolved tolerated diet fine wants to go home OBJECTIVE: Vital Signs-as noted below Exam: General-alert and oriented. Not in distress ENT-Normal hearing Neck-no neck masses Lungs-CTA b/l no wheezing or crackles Heart-S1 and S2 heard. Regular rate and rhythm, no murmurs Abdomen-Soft Bowel sounds present no tenderness present no distension Extremities-No pedal edema no erythema Neuro-alert and awake moves extremities Lab data as noted below. ASSESSMENT & PLAN: This is a 42-year-old male who presents with angioedema of throat. 1. Angioedema. The patient says he has allergic reactions in the past, but only has lip swelling, never had throat swelling and his benazepril was continued because it was difficult to control his blood pressure and was placed on Verena daily and Benadryl and epinephrine p.r.n. The patient received IV Decadron, IV Benadryl and pepcid in the ER. Also received racepinephrine We will continue with IV Solu-Medrol and IV Pepcid, Claritin and Benadryl p.r.n. and will closely monitor in the ICU. Will hold benazepril. Angioedema resolved. Stopped benazepril on discharge. d/sarah on prednisone taper, Zantac, Verena and Benadryl prn f/u with pcp. 2. History of hypertension. The patient is on hydralazine and benazepril. stopping benazepril for above reasons.To call pcp or nephrology f BP gets elevated at home. f/u with pcp and nephrology for BP monitoring. 3. Chronic kidney disease, stage V, not on dialysis yet. The patient states if he goes for dialysis he will go for peritoneal dialysis. Nephrology consulted as above.f/u with Nephrology. 4. Hyperkalemia K 5.4 today A dose of Kayexalate given Nephrology ok for discharge as his K is around 5. renal diet f/u labs in 3-4 days with pcp and nephrology. 5. Hyperlipidemia. Continue statin. Discharged home Vital Signs: Date Time Temp Pulse Resp B/P (MAP) Pulse Ox O2 Delivery O2 Flow Rate FiO2 02/26/17 13:33 36.6 93 20 95 Room Air 02/26/17 12:00 94 Room Air 02/26/17 12:00 36.6 93 20 127/81 (96) 95 Room Air 02/26/17 10:00 82 16 115/67 (83) 93 Room Air 02/26/17 08:00 98 Room Air 02/26/17 08:00 36.7 84 16 132/90 (104) 98 Room Air 02/26/17 06:00 36.7 75 17 110/68 (82) 93 Room Air 02/26/17 04:00 98 Room Air 02/26/17 03:01 100 17 107/64 (78) 92 02/26/17 02:01 83 16 124/70 (88) 95 02/26/17 01:01 75 18 115/68 (84) 91 02/26/17 00:01 91 23 116/64 (81) 94 Room Air 02/25/17 23:59 98 Room Air 02/25/17 23:01 37.0 89 22 119/69 (86) 94 Room Air 02/25/17 22:01 84 22 94/70 (78) 95 Room Air 02/25/17 21:01 108 20 139/96 (110) 96 Room Air 02/25/17 20:01 36.9 106 17 126/88 (101) 97 Room Air 02/25/17 20:00 98 Room Air 02/25/17 18:02 37.0 95 20 125/88 (100) 98 Room Air 02/25/17 18:01 106 16 125/88 (97) 98 02/25/17 18:00 95 15 96 02/25/17 17:01 100 16 130/83 (94) 94 02/25/17 17:00 88 14 96 Lab Results: Results Past 24 Hours Test 02/25/17 22:57 02/26/17 05:22 Range/Units Bedside Glucose 132 70-99 mg/dl White Blood Count 15.15 4.8-10.8 K/uL Red Blood Count 3.05 4.7-6.1 M/uL Hemoglobin 9.0 14.0-18.0 g/dL Hematocrit 27.3 42-52 % Mean Corpuscular Volume 89.5 80-100 fL Mean Corpuscular Hemoglobin 29.5 25-34 pg Mean Corpuscular Hemoglobin Concent 33.0 32-36 g/dl Platelet Count 242 130-400 K/uL Mean Platelet Volume 9.9 7.4-10.4 fL Neutrophils (%) (Auto) 89.4 % Lymphocytes (%) (Auto) 5.7 % Monocytes (%) (Auto) 4.1 % Eosinophils (%) (Auto) 0.0 % Basophils (%) (Auto) 0.1 % Neutrophils # (Auto) 13.55 1.4-6.5 K/uL Lymphocytes # (Auto) 0.87 1.2-3.4 K/uL Monocytes # (Auto) 0.62 0.11-0.59 K/uL Eosinophils # (Auto) 0.00 0-0.5 K/uL Basophils # (Auto) 0.01 0-0.2 K/uL RDW Standard Deviation 46.9 36.4-46.3 fL RDW Coefficient of Variation 14.4 11.5-14.5 % Immature Granulocyte % (Auto) 0.7 % Immature Granulocyte # (Auto) 0.10 0.00-0.02 K/uL Sodium Level 139 136-145 mmol/L Potassium Level 5.4 3.5-5.1 mmol/L Chloride Level 112 98-107 mmol/L Carbon Dioxide Level 14 21-32 mmol/L Anion Gap 13.0 3-11 mmol/L Blood Urea Nitrogen 91 7-18 mg/dl Creatinine 5.95 0.60-1.40 mg/dl Est Creatinine Clear Calc Drug Dose 19.6 ml/min Estimated GFR () 12.6 Estimated GFR (Non- 10.9 BUN/Creatinine Ratio 14.9 10-20 Random Glucose 123 70-99 mg/dl Calcium Level 9.0 8.5-10.1 mg/dl Phosphorus Level 4.8 2.5-4.9 mg/dl Magnesium Level 1.6 1.8-2.4 mg/dl
--- NOTE | 2017-02-26 16:45 | Discharge Summary ---
Discharge Summary Date of Service Feb 26, 2017. Discharge Summary Admission Date: Feb 25, 2017 at 08:30 Discharge Date: Feb 26, 2017 Discharge Disposition: Home Principal Diagnosis: ANGIOEDEMA Secondary Diagnoses/Problems: MPGN with type 1 chronic glomerulonephritis, chronic kidney disease stage V, history of anemia due to chronic kidney disease, history of angioedema, history of allergic rhinitis, history of hypertension, hyperlipidemia, and gouty arthropathy, Procedures: SOFT TISSUE NECK XRAY: Thickening of the bilateral palatine tonsils and soft palate. This favors a tonsillitis. CXR: No acute process. Consultations: CRITICAL CARE NEPHROLOGY Medication Reconciliation New Medications: Prednisone (Prednisone) 5 Mg Tab 30 MG PO UD, #30 TAB PREDNIOSNE 30MG PO DAILY X 2 DAYS THEN PREDNIOSNE 20MG PO DAILY X 2 DAYS THEN PREDNIOSNE 10MG PO DAILY X 2 DAYS THEN PREDNIOSNE 5G PO DAILY USUAL HOME DOSE Ranitidine Hcl (Zantac) 150 Mg Tab 150 MG PO BID for 14 Days, #28 TAB Continued Medications: Allopurinol (Zyloprim) 300 Mg Tab 300 MG PO DAILY, TAB Diphenhydramine Hcl (Benadryl Allergy) 25 Mg Cap 2 CAP PO prn PRN for allergic reaction for 30 Days, #60 CAP 2 Refills Epoetin Aiden (Procrit) 10,000 [place] [address]88 UNITS SQ WK mondays Fexofenadine Hcl (Verena) 180 Mg Tab 180 MG PO DAILY, #30 TAB Furosemide (Lasix) 20 Mg Tab 20 MG PO 3XWK, #30 TAB Hydralazine Hcl (Apresoline) 10 Mg Tab Unknown Dose PO BID, TAB Prednisone (Prednisone) 5 Mg Tab 5 MG PO DAILY, TAB Simvastatin (Zocor) 40 Mg Tab 1 TAB PO HS for 30 Days, #30 TAB 5 Refills Sodium Bicarbonate (Antacid) (Sodium Bicarbonate) 650 Mg Tab 1 TAB PO BID for 30 Days, #60 TAB 5 Refills Discontinued Medications: Benazepril Hcl (Lotensin) 10 Mg Tab 1 TAB PO BID for 30 Days, #60 TAB Admission Information HPI (per Admitting provider): : This is a 42-year-old male with a past medical history significant for MPGN with type 1 chronic glomerulonephritis, chronic kidney disease stage V, history of anemia due to chronic kidney disease, history of angioedema, history of allergic rhinitis, history of hypertension, hyperlipidemia, and gouty arthropathy, who presents with angioedema. The patient last night felt swelling in the throat and was having somewhat difficulty speaking and shortness of breath and came to the ER. In the ER, he was given Decadron and Benadryl and currently his symptoms improved, he is breathing okay and his speech has improved, but he still has some difficulty swallowing. The patient says he had couple of episodes of lip swelling in the past, thought to be secondary to from his benazepril medication, but since off of benazepril making his blood pressure difficult to control. He was placed back on benazepril and also placed on Verena and Benadryl p.r.n. and epinephrine injections p.r.n. Last night, he did not take any medication and he just came to the ER. Currently, resting comfortably and hemodynamically stable. Denies any headaches or dizziness. No blurred vision, no cough, no nausea, no vomiting, no chest pain, no abdominal pain, no fever, and no chills. Normal bowel and bladder movements. Resting comfortably and hemodynamically stable. Physical Exam (per Admitting): GENERAL: The patient is of moderate build, not in distress. VITAL SIGNS: Temperature 36.4, pulse 78, respiratory rate 20, blood pressure 135/92, and oxygen 96% on room air. HEENT: No pallor. No icterus. Pupils equal, round, and reactive to light. has swelling of the uvula and pharynx region. NECK: No JVD, no neck masses, and no carotid bruits. CARDIOVASCULAR: S1, S2 heard, regular rate and rhythm, no murmur, no gallop. RESPIRATORY SYSTEM: Normal AP diameter. No accessory muscle use. Clear to auscultation bilaterally. No wheezing, no crackles. ABDOMEN: Soft, bowel sounds present. Nontender. No distention. CENTRAL NERVOUS SYSTEM: Cranial nerves II-XII grossly intact. Nonfocal. EXTREMITIES: No edema and no erythema. Hospital Course This is a 42-year-old male who presents with angioedema of throat. 1. Angioedema. The patient says he has allergic reactions in the past, but only has lip swelling, never had throat swelling and his benazepril was continued because it was difficult to control his blood pressure and was placed on Verena daily and Benadryl and epinephrine p.r.n. The patient received IV Decadron, IV Benadryl and pepcid in the ER. Also received racepinephrine We will continue with IV Solu-Medrol and IV Pepcid, Claritin and Benadryl p.r.n. and will closely monitor in the ICU. Will hold benazepril. Angioedema resolved. Stopped benazepril on discharge. d/sarah on prednisone taper, Zantac, Verena and Benadryl prn f/u with pcp. 2. History of hypertension. The patient is on hydralazine and benazepril. stopping benazepril for above reasons.To call pcp or nephrology f BP gets elevated at home. f/u with pcp and nephrology for BP monitoring. 3. Chronic kidney disease, stage V, not on dialysis yet. The patient states if he goes for dialysis he will go for peritoneal dialysis. Nephrology consulted as above.f/u with Nephrology. 4. Hyperkalemia K 5.4 today A dose of Kayexalate given Nephrology ok for discharge as his K is around 5. renal diet f/u labs in 3-4 days with pcp and nephrology. 5. Hyperlipidemia. Continue statin. Discharged home Total time spent on discharge = 35MINUTES This includes examination of the patient, discharge planning, medication reconciliation, and communication with other providers. Discharge Instructions Discharge Instructions Date of Service Feb 26, 2017. Admission Reason for Admission: Angioedema Discharge Discharge Diagnosis / Problem: angioedema Discharge Goals Goal(s): Decrease discomfort Activity Recommendations Activity Limitations: resume your previous activity . Instructions / Follow-Up Instructions / Follow-Up FOLLOWUP WITH FAMILY DOCTOR Narda Hernandez ON Mar AT 8:45AM. FOLLOWUP WITH NEPHROLOGY SCHEDULED. TO CHECK BLOOD PRESSURE DAILY AND NOTIFY FAMILY DOCTOR OR IF ELEVATED. LAB: BMP IN 3-4 DAYS AND FOLLOW RESULTS WITH FAMILY DOCTOR/NEPHROLOGY Current Hospital Diet Patient's current hospital diet: Renal Diet Discharge Diet Recommended Diet: AHA Diet (Heart Healthy), Renal Diet, Low Potassium Diet (2g K) Pending Studies Studies pending at discharge: no Medical Emergencies . Who to Call and When: Medical Emergencies: If at any time you feel your situation is an emergency, please call 911 immediately. . Non-Emergent Contact Non-Emergency issues call your: Primary Care Provider . . "Provider Documentation" section prepared by Paul Bryan. . VTE Core Measure Inpt VTE Proph given/why not?: SCD's
== END 2017-02-26 13:56 | disposition home or self-care (01) | DRG 916 ==
LOC: C.EDB 06:13 → C.MSICU 08:30 → ENRESERV 08:40
PROVIDERS: ADMIT Internal Medicine; ATTEND Internal Medicine
DX: T78.3XXA Angioneurotic edema, initial encounter (principal); I12.0 Hypertensive chronic kidney disease with stage 5 chronic kidney disease or end stage renal disease; N18.5 Chronic kidney disease, stage 5; E78.5 Hyperlipidemia, unspecified; D63.1 Anemia in chronic kidney disease; E87.5 Hyperkalemia; Z79.52 Long term (current) use of systemic steroids; Z79.899 Other long term (current) drug therapy; T46.4X5A Adverse effect of angiotensin-converting-enzyme inhibitors, initial encounter; Z87.891 Personal history of nicotine dependence

== ENCOUNTER 2017-04-17 09:36 | Inpatient (IN) | payer BC, OTHER ==
[2017-04-17] VITALS (21 sets, daily range): BP systolic 128–167; BP diastolic 71–105; PULSE 81–108; TEMP 36.5–37; O2SAT 95–98; Ht 180.3 cm; Wt 101.1 kg
[~2017-04-17] VITALS: Ht 180.3 cm; Wt 101.1 kg
[~2017-04-17 09:36] MED LIST changes: +DIPH25CA65 PO; +EPGI10M SQ; +FEXO1TAB46 PO; +FURO-85 PO; -SIMV20TA2 PO; +SIMV40TA4 PO; +SODI650T8 PO
[2017-04-17] MEDS ORDERED: ACETAMINOPHEN 325 MG TAB PO PRN (10:45)
[2017-04-17] MEDS ORDERED: ONDANSETRON INJ 2 MG/ML 2 ML VIAL IV PRN (10:45)
[2017-04-17 11:22] LABS: HEMATOCRIT 30.2 % (42-52); HEMOGLOBIN 10.1 g/dL (14.0-18.0); MEAN CELL VOLUME 83.2 fL (80-100); MEAN CORPUSCULAR HEMOGLOBIN 27.8 pg (25-34); MEAN CORPUSCULAR HGB CONC 33.4 g/dl (32-36); MEAN PLATELET VOLUME 9.3 fL (7.4-10.4); PLATELET COUNT 170 K/uL (130-400); RED CELL DISTRIBUTION WIDTH CV 15.3 % (11.5-14.5); WHITE BLOOD COUNT 11.69 K/uL (4.8-10.8)
[2017-04-17] MEDS ORDERED: SIMV20TA2 PO (11:24)
[2017-04-17] MEDS ORDERED: NRV5 PO (11:24)
[2017-04-17] MEDS ORDERED: FURO-85 PO (11:24)
[2017-04-17 11:51] LABS: BLOOD UREA NITROGEN 117 mg/dl (7-18); CALCIUM 10.1 mg/dl (8.5-10.1); CARBON DIOXIDE 22 mmol/L (21-32); CREATININE 9.17 mg/dl (0.60-1.40); GLUCOSE 90 mg/dl (70-99); PHOSPHORUS 8.2 mg/dl (2.5-4.9); POTASSIUM 3.7 mmol/L (3.5-5.1); SODIUM 137 mmol/L (136-145)
--- NOTE | 2017-04-17 12:40 | History and Physical ---
History & Physical Date & Time of Service: Apr 17, 2017 ~ 11:00 Chief Complaint: ESRD Primary Care Physician: Austyn Leo M.D. History of Present Illness 42 year old male sent for direct admission from Dr. Phelps's office for initiation of dialysis. 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 Patient is on the transplant list. His renal functions have been slowly declining. He has had increasing lower extremity edema and uremic symptoms. He reports exertional shortness of breath. No chest pain, lightheadedness, dizziness, diaphoresis, or syncopal events. He reports a good appetite. No abdominal pain, nausea, vomiting, or diarrhea. He continues to make urine. He denies urinary symptoms. No fevers or chills. At the time of my exam, patient is resting in bed in no acute distress. 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 Status: Chronic (4) Gout Status: Chronic (5) HTN (hypertension) Status: Chronic (6) MGUS (monoclonal gammopathy of unknown significance) Status: Chronic Family History Hodgkin's disease MOTHER Social History Smoking Status: Former Smoker Alcohol Use: occasionally Immunizations History of Influenza Vaccine: Yes Influenza Vaccine Date: Jan 20, 2016 History of Tetanus Vaccine?: Yes Tetanus Immunization Date: Feb 11, 2014 History of Pneumococcal: Yes Pneumococcal Date: May 01, 2016 Allergies Coded Allergies: LEATHA Inhibitors (Verified Allergy, Severe, ANGIOEDEMA, 04/17/17) Benazepril (Unverified Allergy, Severe, shortness of breath, 04/17/17) ANGIOEDEMA of throat NSAIDs (Verified Adverse Reaction, Severe, CHRONIC KIDNEY DISEASE, ) Home Medications Scheduled Allopurinol (Zyloprim), 300 MG PO DAILY Amlodipine Besylate (Amlodipine Besylate), 10 MG PO DAILY Epoetin Aiden (Procrit), 10,000 UNITS SQ WK Furosemide (Lasix), 20 MG PO DAILY Hydralazine Hcl (Apresoline), 10 MG PO BID Prednisone (Prednisone), 5 MG PO DAILY Simvastatin (Zocor), 20 MG PO QPM Sodium Bicarbonate (Antacid) (Sodium Bicarbonate), 1 TAB PO DAILY Scheduled PRN Diphenhydramine Hcl (Benadryl Allergy), 2 CAP PO prn PRN for allergic reaction Review of Systems ROS per HPI, all other systems reviewed and negative Physical Exam General Appearance: WD/WN, no apparent distress Head: normocephalic, atraumatic Eyes: normal inspection, EOMI, sclerae normal ENT: hearing grossly normal, + pertinent finding (mucous membranes moist) Neck: supple, no JVD, trachea midline Respiratory/Chest: lungs clear, normal breath sounds, no respiratory distress Cardiovascular: regular rate, rhythm, no edema, + pertinent finding (trace edema BLLE) Abdomen/GI: normal bowel sounds, non tender, soft, no organomegaly Extremities/Musculoskelatal: normal inspection, no calf tenderness, normal capillary refill Neurologic/Psych: no motor/sensory deficits, alert, normal mood/affect, oriented x 3 Skin: normal color, warm/dry Diagnostics Laboratory Results Results Past 24 Hours Test 04/17/17 11:02 Range/Units White Blood Count 11.69 4.8-10.8 K/uL Red Blood Count 3.63 4.7-6.1 M/uL Hemoglobin 10.1 14.0-18.0 g/dL Hematocrit 30.2 42-52 % Mean Corpuscular Volume 83.2 80-100 fL Mean Corpuscular Hemoglobin 27.8 25-34 pg Mean Corpuscular Hemoglobin Concent 33.4 32-36 g/dl RDW Standard Deviation 47.0 36.4-46.3 fL RDW Coefficient of Variation 15.3 11.5-14.5 % Platelet Count 170 130-400 K/uL Mean Platelet Volume 9.3 7.4-10.4 fL Prothrombin Time 10.7 9.0-12.0 SECONDS Prothromb Time International Ratio 1.0 0.9-1.1 Sodium Level 137 136-145 mmol/L Potassium Level 3.7 3.5-5.1 mmol/L Chloride Level 105 98-107 mmol/L Carbon Dioxide Level 22 21-32 mmol/L Anion Gap 10.0 3-11 mmol/L Blood Urea Nitrogen 117 7-18 mg/dl Creatinine 9.17 0.60-1.40 mg/dl Estimated GFR () 7.5 Estimated GFR (Non- 6.4 BUN/Creatinine Ratio 12.8 10-20 Random Glucose 90 70-99 mg/dl Calcium Level 10.1 8.5-10.1 mg/dl Phosphorus Level 8.2 2.5-4.9 mg/dl Magnesium Level 2.1 1.8-2.4 mg/dl Impression Assessment and Plan ESRD - admit to tele - hx of idiopathic 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 Phelps for initiation of HD - planning for tunnelled catheter today with Dr. Muñoz - continue Prednisone, sodium bicarb, Lasix HTN - BP controlled - continue amlodipine GOUT - continue allopurinol DVT PROPHYLAXIS - SCDs due to invasive procedure today DISPO - In my clinical judgment this beneficiary meets acute admission criteria, established by [facility], that includes being hospitalized through two midnights. Agree with above H and P. Briefly 42M with ESRD was directly admitted for initiation of dialysis. Patient will get line placed today for dialysis. Says generalized weakness, sob on exertion other messina doing ok. No chest pain. No nausea. Appetite ok. Afebrile. p/e Ge : alert and oriented .not in distress Cvs s1 and s2 heard no murmurs Rs cta b/l no added sounds Abd benign Bilingual Medical Receptionist non focal Ext trace edema present no erythema a/p ESRD initiation of dialysis as per nephrology HTN continue home meds iv hydralazine prn clonidine prn VTE Prophylaxis VTE Risk Assessment Done? Y/N: Yes Risk Level: Moderate
--- NOTE | 2017-04-17 13:07 | Surgery Consultation ---
Consultation Date of Service Apr 17, 2017. (Martha Selby, JINNY) Chief Complaint ESRD, need permcath (Martha Selby, JINNY) History of Present Illness The patient is a 42 year old male with hx of CKD beginning in 2004 d/t idiopathic MGUS type 1, admitted today d/t acute on chronic renal failure, seen in consultation for permcath insertion to initiate HD. Pt previously known to Dr Muñoz from an office visit to discuss CAPD catheter insertion in remote past , however, it was decided by nephrology that this was unnecessary at the time. Pt noted mild ACKERMAN and BLE edema, as well as generalized fatigue/malaise. Denies pruritis, ALEXANDRA, fever, chills, chest pain, SOB at rest, abd pain, N/V, rest pain, claudication, other complaints. Pt on transplant list and possibly to undergo renal transplant in next 6-8 wks. (Martha Selby, JINNY) Vitals Vital Signs Past 12 Hours Date Time Temp Pulse Resp B/P (MAP) Pulse Ox O2 Delivery O2 Flow Rate FiO2 04/17/17 12:00 Room Air 04/17/17 12:00 36.5 83 16 160/95 (116) 95 Room Air 04/17/17 11:39 36.5 81 22 139/98 98 Room Air (Martha Selby, DUNCANC) Allergies Coded Allergies: LEATHA Inhibitors (Verified Allergy, Severe, ANGIOEDEMA, 04/17/17) NSAIDs (Verified Adverse Reaction, Severe, CHRONIC KIDNEY DISEASE, ) Uncoded Allergies: benzapril (Allergy, Severe, SHORTNESS OF BREATH, 02/26/17) ANGIOEDEMA of throat Home Medications Scheduled Allopurinol (Zyloprim), 300 MG PO DAILY Amlodipine Besylate (Amlodipine Besylate), 10 MG PO DAILY Epoetin Aiden (Procrit), 10,000 UNITS SQ WK Furosemide (Lasix), 20 MG PO DAILY Hydralazine Hcl (Apresoline), 10 MG PO BID Prednisone (Prednisone), 5 MG PO DAILY Simvastatin (Zocor), 20 MG PO QPM Sodium Bicarbonate (Antacid) (Sodium Bicarbonate), 1 TAB PO DAILY Scheduled PRN Diphenhydramine Hcl (Benadryl Allergy), 2 CAP PO prn PRN for allergic reaction Problem List Medical Problems: (1) Anemia due to chronic kidney disease (2) Dyslipidemia (3) ESRD (end stage renal disease) (4) Gout (5) HTN (hypertension) (6) MGUS (monoclonal gammopathy of unknown significance) (Martha Selby PA-C) Surgical / Medical History Hx Cardiac Surgery: No Hx Abdominal Surgery: No Hx Cancer Surgery: No Hx Thoracic Surgery: No Hx Orthopedic: No Hx Urinary Tract Surgery: No HX Other Surgery: No Past Medical/Surgical History: Hypertension, Kidney Disease (Martha Selby PA-C) Family History Hodgkin's disease MOTHER (Martha Selby PA-C) Hodgkin's disease MOTHER (Ty Muñoz M.D.) Social History Smoking Status: Former Smoker Hx Tobacco Use In Past Year?: No Hx Alcohol Use - Type & Amnt: Yes (1 QD) Hx Substance Use -Type & Amnt: No (Martha Selby PA-C) Review of Systems Constitutional: + malaise, No chills, No fever Skin: No change in color Eyes: No visual changes ENMT: No sore throat Respiratory: + ACKERMAN, No cough, No hemoptysis, No orthopnea, No short of breath Cardiovascular: + edema, No chest pain, No palpitations, No syncope, No intermittent claudication Gastrointestinal: No abdominal pain, No nausea, No vomiting Musculoskeletal: No back pain Neurologic: No dizziness, No lethargy, No numbness, No tingling (Martha Selby, DUNCANC) Physical Exam Constitutional: General Apperance: heathly-appearing, well-nourished, well-developed Level of Distress: NAD Ambulation: ambulating normally Psychiatric: Mental Status: active & alert, normal mood, normal affect Orientation: oriented except where noted, to time, to place, to person Memory: recent memory normal, remote memory normal Head: normocephalic, atraumatic Eyes: EOM: EOMI ENMT: normal ENT inspection, hearing grossly normal Neck: supple, trachea midline Lungs: Respiratory effort: no dyspnea Auscultation: no rales/crackles, no rhonchi, decreased breath sounds Cardiovascular: Apical Impulse: not displaced Heart Auscultation: RRR, no rubs, no gallops Peripheral Pulses: Pulses: full and equal, in all extremities except if noted Bruits: none appreciated Carotid Pulse: normal on the left, normal on the right Brachial Pulses: normal on the left, normal on the right Radial Pulse: normal on the left, normal on the right Femoral Pulse: normal on the left, normal on the right Posterior Tibialis Pulse: normal on the left, normal on the right Dorsalis Pedis Pulse: normal on the left, normal on the right Abdomen: Bowel Sounds: normal Inspection & Palpation: soft, non-distended, no tenderness, guarding & rebound Musculoskeletal: normal strength (5/5 throughout), normal tone Extremities: Upper Right: no cyanosis, no varicosities, edema (trace) Upper Left: no cyanosis, no varicosities, edema (trace) Lower Right: no cyanosis, no varicosities, no palpable cord, edema (trace) Lower Left: no cyanosis, no varicosities, no palpable cord, edema (trace) Neurologic: Cranial Nerves: grossly intact Sensation: grossly intact (Martha Selby, DUNCANC) Assessment and Plan ASSESSMENT and PLAN: ESRD, need permcath for HD Pt scheduled for permcath insertion later this afternoon. Procedure discussed with pt, he is agreeable. (Martha Selby, DUNCANC) Patient in need of dialysis. Will place permcath today. I have discussed the risks options and benefits of the procedure with the patient. The patient understands the risks options and benefits and agrees to the procedure. Patient was seen, examined, and chart reviewed. Agree with exam and treatment plan of the Vascular PA. (Ty Muñoz M.D.)
[2017-04-17 13:15] LABS: HEP C IGG 13 YRS+OLDER_RFLX NEG (NEG)
[2017-04-17] MEDS ORDERED: LIDOCAINE HCL 2% 2 ML VIAL (20MG/ML) ONE (14:58)
[2017-04-17] MEDS ORDERED: PROPOFOL IV EMULSION 10 MG/ML 20 ML VIAL IV ONE (14:58)
[2017-04-17] MEDS ORDERED: MIDAZOLAM HCL 1 MG/ML 2ML VIAL ONE ×2 (14:58→15:26)
[2017-04-17] MEDS ORDERED: FENTANYL CITRATE INJ 50 MCG/1 ML 2 ML VIAL ONE (14:58)
[2017-04-17] MEDS ORDERED: CEFAZOLIN SOD 1 GM VIAL ONE (15:06)
[2017-04-17] MEDS ORDERED: HEPARIN SOD (PORCINE) 5000 UNIT/ML 1 ML VIAL ONE (15:06)
[2017-04-17] MEDS ORDERED: LIDOCAINE HCL 1% 20 ML VIAL ONE (15:06)
[2017-04-17] MEDS ORDERED: CEFAZOLIN SOD 2000MG/10 ML IV PUSH IV ONE (15:20)
[2017-04-17] MEDS ORDERED: HEPARIN SOD (PORCINE) 5000 UNIT/ML 1 ML VIAL IV ONE (15:45)
[2017-04-17] MEDS ORDERED: LIDOCAINE HCL 1% 20 ML VIAL INFIL ONE (15:45)
--- NOTE | 2017-04-17 15:45 | [facility] Operative Report ---
Operative Report Operative Date Apr 17, 2017. Pre-Operative Diagnosis End Stage Renal Disease Post-Operative Diagnosis Same Procedure(s) Performed Perm Catheter Insertion, Right Jugular Vein Ultrasound Localization of Right Jugular Vein Flurosocpy for Comfirmation Surgeon Toni Piano Technician Surgeon(s) None Estimated Blood Loss 5 Findings tip in mid SVC Specimens None Anesthesia Local with sedation Complication(s) None Disposition Indications This is a 42-year-old white male with end-stage renal disease in need of dialysis. A right internal jugular vein PermCath was recommended. I have discussed the risks options and benefits of the procedure with the patient. The patient understands the risks options and benefits and agrees to the procedure. Description of Procedure Patient was takent to the angio suite and placed in the supine position. The right side of the neck and chest wall were prepped and draped in a sterile manner. Local anesthesia was then administered to the appropriate areas of the neck and chest wall. Ultrasound was then used to locate the right internal jugular vein. The vein compressed easily, had no filing defects, and was patent. The vein was then punctured under direct ultrasound imaging. A guidewire was then passed centrally under fluoroscopic imaging. A stab wound was then made in the anterior chest wall and a 19 cm permcath was passed from the stab wound on the chest wall to the puncture site on the neck. The puncture site was then dilated till the 14Fr peel away sheath was inserted. The permcath was then inserted through the sheath to a central position in the distal superior vena cava. The peel away sheath was then removed. The catheter was then sutured in place using nylon sutures. The puncture was then closed using a 4-0 Vicryl subcuticular suture. Dermabond was used for a dressing on the puncture site. Both ports aspirated and flushed easily and were then packed with heparin. A sterile dressing was applied to the catheter. The patient left the angio suite in good condition and tolerated the procedure well. I attest to the content of the Intraoperative Record and any orders documented therein. Any exceptions are noted below.
--- NOTE | 2017-04-17 16:44 | Anesthesiology Progress Note ---
Anesthesia Post Op Note Date & Time Apr 17, 2017 at 16:44 Vital Signs Pain Intensity: 0.0 Vital Signs Past 12 Hours Date Time Temp Pulse Resp B/P (MAP) Pulse Ox O2 Delivery O2 Flow Rate FiO2 04/17/17 16:15 101 19 160/104 (122) 96 Room Air 04/17/17 16:00 37.0 96 20 152/94 (113) 96 Room Air 04/17/17 12:00 Room Air 04/17/17 12:00 36.5 83 16 160/95 (116) 95 Room Air 04/17/17 11:39 36.5 81 22 139/98 98 Room Air Notes Mental Status: alert / awake / arousable, participated in evaluation Pt Amnestic to Procedure: Yes Nausea / Vomiting: adequately controlled Pain: adequately controlled Airway Patency, RR, SpO2: stable & adequate BP & HR: stable & adequate Hydration State: stable & adequate Anesthetic Complications: no major complications apparent
[2017-04-17] MEDS ORDERED: CLONIDINE HCL 0.1 MG TAB PO PRN (16:45)
[2017-04-17] MEDS ORDERED: HydrALAZINE HCL 20 MG/ML VIAL IV. PRN (16:45)
--- NOTE | 2017-04-17 19:08 | NEPHROLOGY CONSULTATION ---
DATE OF CONSULTATION: 04/17/2017 ATTENDING OF RECORD: [facility] [place]. REASON FOR CONSULTATION: End-stage renal disease. 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 Transplant is aware of this and is still active on the transplant list and is being arranged for possible living donor transplant in May. The patient also is with significant angioedema from both LEATHA inhibitors and ARBs. The patient is also with anemia from chronic kidney disease and has been getting Procrit injections. The patient does have significant hypertension, which at times is difficult to control socially with the inability to use LEATHA inhibitors and/or ARBs. The patient's creatinine though unfortunately has been progressively worsening. Creatinine was 5.3 in March and 7.3 in April 09. One week later, up to 8.4 with a calcium level that was elevated at 10.9 and about 2.5 grams of protein in the urine. The patient is closely getting a living donor recipient. Although, I feel with the GFR now in the 7s with worsening trajectory over the past 6 weeks I feel that the patient likely become symptomatic. After a careful and thoughtful conversation with the patient, I decided to initiate dialysis now before the patient becomes significantly uremic. So, the patient was directly admitted today and is tentatively planned for dialysis catheter today with initiation of dialysis tonight. PAST MEDICAL HISTORY: CKD stage V, hypertension, hyperlipidemia, gout, osteoporosis, type 1 MPGN and MGUS. PAST SURGICAL HISTORY: Kidney biopsy. SOCIAL HISTORY: . No tobacco. Occasional alcohol. No drugs. Lives at home with . CURRENT MEDICATIONS: At home, the patient is on Renagel 1 p.o. t.i.d. with meals, prednisone 5 mg a day, sodium bicarbonate 650 mg daily, Lasix 20 mg a day, Norvasc 10 mg a day, Procrit 10,000 units weekly, Zocor 20 mg daily, hydralazine 10 mg twice a day, and allopurinol 300 mg daily. REVIEW OF SYSTEMS: Generally, positive fatigue. No headaches. Positive shortness of breath with over exertion. Positive edema, which is improved with Lasix. No nausea or vomiting. No abdominal pain. Positive nocturia. Positive chronic back pain. No rash or itching. PHYSICAL EXAMINATION: VITAL SIGNS: Temperature is afebrile, blood pressure 139/98, pulse in the 80s, respiratory rate 16, and pulse ox 98% on room air. GENERAL: Awake, alert, and oriented x3. EYES: No scleral icterus. ENT: Moist mucous membranes. NECK: Supple. PULMONARY: Clear to auscultation. CARDIAC: Regular rate and rhythm. ABDOMEN: Bowel sounds positive. Soft and nontender. EXTREMITIES: Mild edema. NEUROLOGICALLY: Nonfocal. DERMATOLOGIC: No rash or ulcers noted. LABORATORIES: Pending. ASSESSMENT AND PLAN: 1. Chronic kidney disease, stage V with worsening creatinine. We decided to proactively start the patient on dialysis. Only major uremic symptom is significant fatigue and was having worsening edema as well. Although, initiated on Lasix over the past week to help control the edema, which has improved. Tentative plan is to have a tunneled dialysis catheter placed this afternoon and initiation of a short dialysis treatment tonight and then, we will continue daily dialysis while trying to have the patient accepted at a local dialysis unit. 2. Anemia of renal failure. We will follow hemoglobin levels and dose Procrit accordingly. The patient has been on Procrit as an outpatient. 3. Renal osteodystrophy. The patient's phosphorous levels were elevated as outpatient, just recently started on patient's phosphate binders and would continue those. 4. Transplant. The patient is an active transplant patient. So, no blood transfusions if we can avoid them. Continue Procrit and dialysis. 5. Hypertension. Blood pressure is elevated. Perhaps may improve as we start to remove fluid on dialysis. We will continue the patient's current blood pressure medications. The patient did have significant angioedema to both LEATHA and ARBs and we will continue to avoid those. I appreciate the consultation. PERRY
[2017-04-17] MEDS: SIMVASTATIN 20 MG TAB PO SCH (19:48)
[2017-04-17] MEDS: HydrALAZINE 10 MG TAB PO SCH (19:48)
[2017-04-18] VITALS (17 sets, daily range): BP systolic 137–174; BP diastolic 81–112; PULSE 92–105; TEMP 36.5–37; O2SAT 91–96
[2017-04-18 06:36] LABS: HEMATOCRIT 30.9 % (42-52); HEMOGLOBIN 10.1 g/dL (14.0-18.0); MEAN CELL VOLUME 83.1 fL (80-100); MEAN CORPUSCULAR HEMOGLOBIN 27.2 pg (25-34); MEAN CORPUSCULAR HGB CONC 32.7 g/dl (32-36); MEAN PLATELET VOLUME 9.5 fL (7.4-10.4); PLATELET COUNT 175 K/uL (130-400); RED CELL DISTRIBUTION WIDTH CV 15.5 % (11.5-14.5); RED CELL DISTRIBUTION WIDTH SD 47.4 fL (36.4-46.3); WHITE BLOOD COUNT 11.41 K/uL (4.8-10.8)
[2017-04-18 07:18] LABS: CALCIUM 9.2 mg/dl (8.5-10.1); CREATININE 7.42 mg/dl (0.60-1.40); POTASSIUM 3.5 mmol/L (3.5-5.1)
[2017-04-18] MEDS ORDERED: PNEUMOCOCCAL POLYSACCHARIDES 25 MCG/0.5 ML VIAL/SYR IM. ONE (08:00)
[2017-04-18] MEDS ORDERED: PNEUMOCOCCAL ADMINISTRATION CHARGE ONE (08:00)
--- NOTE | 2017-04-18 08:14 | Anesthesiology Progress Note ---
Anesthesia Post Op Note Date & Time Apr 18, 2017 at 08:13 Vital Signs Pain Intensity: 0.0 Vital Signs Past 12 Hours Date Time Temp Pulse Resp B/P (MAP) Pulse Ox O2 Delivery O2 Flow Rate FiO2 04/18/17 07:51 36.8 97 16 145/84 (104) 95 Room Air 04/18/17 04:00 Room Air 04/18/17 03:52 37.0 100 18 137/81 (99) 94 04/18/17 00:01 Room Air 04/17/17 23:47 36.7 104 18 153/86 (108) 04/17/17 23:25 103 163/85 04/17/17 23:16 36.7 103 163/85 (111) 04/17/17 23:15 107 157/86 04/17/17 23:02 104 153/86 04/17/17 22:45 98 135/83 04/17/17 22:30 99 128/71 04/17/17 22:15 104 164/89 04/17/17 22:00 108 156/80 04/17/17 21:45 104 156/91 04/17/17 21:30 103 142/82 04/17/17 21:19 99 149/88 04/17/17 21:15 36.7 95 151/87 (108) Notes Mental Status: alert / awake / arousable, participated in evaluation Pt Amnestic to Procedure: Yes Nausea / Vomiting: adequately controlled Pain: adequately controlled Airway Patency, RR, SpO2: stable & adequate BP & HR: stable & adequate Hydration State: stable & adequate Anesthetic Complications: no major complications apparent
[2017-04-18] MEDS: HydrALAZINE 10 MG TAB PO SCH (08:19)
[2017-04-18] MEDS: ALLOPURINOL 300 MG TAB PO SCH (08:19)
[2017-04-18] MEDS: FUROSEMIDE 20 MG TAB PO SCH (08:19)
[2017-04-18] MEDS: AMLODIPINE BESYLATE 5 MG TAB PO SCH ×2 (08:19→18:48)
[2017-04-18] MEDS ORDERED: SODIUM BICARBONATE 650 MG TAB PO SCH (09:00)
--- NOTE | 2017-04-18 09:30 | Nephrology Progress Note ---
Nephrology Progress Note Date of Service: Apr 18, 2017. Subjective 42 yo male with esrd who was admitted to initiate dialysis. had catheter placed yesterday and did have some post op bleeding which is better now. underwent first dialysis treatment. doing well this morning. no complaints. sister in the room with him. Objective Date Time Temp Pulse Resp B/P (MAP) Pulse Ox O2 Delivery O2 Flow Rate FiO2 04/18/17 07:51 36.8 97 16 145/84 (104) 95 Room Air 04/18/17 04:00 Room Air 04/18/17 03:52 37.0 100 18 137/81 (99) 94 04/18/17 00:01 Room Air 04/17/17 23:47 36.7 104 18 153/86 (108) 04/17/17 23:25 103 163/85 04/17/17 23:16 36.7 103 163/85 (111) 04/17/17 23:15 107 157/86 04/17/17 23:02 104 153/86 04/17/17 22:45 98 135/83 04/17/17 22:30 99 128/71 04/17/17 22:15 104 164/89 04/17/17 22:00 108 156/80 04/17/17 21:45 104 156/91 04/17/17 21:30 103 142/82 04/17/17 21:19 99 149/88 04/17/17 21:15 36.7 95 151/87 (108) 04/17/17 20:10 Room Air 04/17/17 19:43 36.5 93 16 153/90 (111) 95 Room Air 04/17/17 17:15 108 159/98 (118) 04/17/17 16:45 97 167/105 (125) 04/17/17 16:30 97 166/104 (124) 04/17/17 16:15 101 19 160/104 (122) 96 Room Air 04/17/17 16:00 37.0 96 20 152/94 (113) 96 Room Air 04/17/17 16:00 Room Air 04/17/17 12:00 Room Air 04/17/17 12:00 36.5 83 16 160/95 (116) 95 Room Air 04/17/17 11:39 36.5 81 22 139/98 98 Room Air Physical Exam: General-aaox3 Eyes-no scleral icterus ENT-mmm Neck-supple Lungs-cta Heart-rrr Abdomen-bs+ s/nt/nd Extremities-no c/c/e Neuro-nonfocal Current Inpatient Medications Medications (Trade) Dose Ordered Sig/Sheron Route Start Time Stop Time Status Last Admin Dose Admin Acetaminophen (Tylenol Tab) 650 mg Q4H PRN PO 04/17/17 10:45 05/17/17 10:44 Ondansetron HCl (Zofran Inj) 4 mg Q6H PRN IV 04/17/17 10:45 05/17/17 10:44 Allopurinol (Zyloprim Tab) 300 mg DAILY PO 04/18/17 09:00 05/18/17 08:59 04/18/17 08:19 300 MG Amlodipine Besylate (Norvasc Tab) 10 mg DAILY PO 04/18/17 09:00 05/18/17 08:59 Hydralazine HCl (Apresoline Tab) 10 mg BID PO 04/17/17 21:00 05/17/17 20:59 04/17/17 19:48 10 MG Prednisone (PredniSONE TAB) 5 mg DAILY PO 04/18/17 09:00 05/18/17 08:59 04/18/17 08:19 5 MG Simvastatin (Zocor Tab) 20 mg QPM PO 04/17/17 21:00 05/17/17 20:59 04/17/17 19:48 20 MG Sodium Bicarbonate (Sodium Bicarbonate Tab) 650 mg DAILY PO 04/18/17 09:00 05/18/17 08:59 04/18/17 08:19 650 MG Furosemide (Lasix Tab) 20 mg DAILY PO 04/18/17 09:00 05/18/17 08:59 Hydralazine HCl (HydrALAZINE INJ) 5 mg Q6H PRN IV. 04/17/17 16:45 05/17/17 16:44 04/17/17 16:53 5 MG Clonidine HCl (Catapres Tab) 0.1 mg Q4H PRN PO 04/17/17 16:45 05/17/17 16:44 Last 24 Hours Test 04/17/17 11:02 04/18/17 06:10 White Blood Count 11.69 K/uL 11.41 K/uL Red Blood Count 3.63 M/uL 3.72 M/uL Hemoglobin 10.1 g/dL 10.1 g/dL Hematocrit 30.2 % 30.9 % Mean Corpuscular Volume 83.2 fL 83.1 fL Mean Corpuscular Hemoglobin 27.8 pg 27.2 pg Mean Corpuscular Hemoglobin Concent 33.4 g/dl 32.7 g/dl RDW Standard Deviation 47.0 fL 47.4 fL RDW Coefficient of Variation 15.3 % 15.5 % Platelet Count 170 K/uL 175 K/uL Mean Platelet Volume 9.3 fL 9.5 fL Prothrombin Time 10.7 SECONDS Prothromb Time International Ratio 1.0 Sodium Level 137 mmol/L 137 mmol/L Potassium Level 3.7 mmol/L 3.5 mmol/L Chloride Level 105 mmol/L 105 mmol/L Carbon Dioxide Level 22 mmol/L 22 mmol/L Anion Gap 10.0 mmol/L 10.0 mmol/L Blood Urea Nitrogen 117 mg/dl 83 mg/dl Creatinine 9.17 mg/dl 7.42 mg/dl Estimated GFR () 7.5 9.6 Estimated GFR (Non- 6.4 8.3 BUN/Creatinine Ratio 12.8 11.2 Random Glucose 90 mg/dl 90 mg/dl Calcium Level 10.1 mg/dl 9.2 mg/dl Phosphorus Level 8.2 mg/dl Magnesium Level 2.1 mg/dl Hepatitis B Surface Antigen NEG Hepatitis B Surface Antibody NEG Hepatitis C Antibody NEG Est Creatinine Clear Calc Drug Dose 16.1 ml/min Date/Time Source Procedure Growth Status 04/17/17 10:30 Nasal MRSA DNA Surveillance Screen - Final Specimen Negative for MRSA by DNA Probe Complete Assessment & Plan ESRD-had first dialysis treatment last night. for second treatment today. catheter working well. Acidosis-now that he is on dialysis, will stop the sodium bicarb tablets. MPGN-now that we have initiated dialysis, will stop the prednisone 5mg a day and hold on taper with the low dose. HTN: will increase the hydralazine to 25mg po bid to see if he tolerates the medication better this time around. in the past, did not feel well on the higher dose.
--- NOTE | 2017-04-18 12:07 | Progress Note ---
Subjective Date of Service: Apr 18, 2017. Subjective Pt evaluation today including: conversation w/ patient, physical exam, lab review, review of studies, conversation w/ presales consultant, review of inpatient medication list Saw/examined the patient in room 218, he's doing well, no problems/issues to note today Denies any symptoms, main complaint on admission was fatigue/weakness which is the only complaint today. Problem List Medical Problems: (1) Angioedema Status: Acute (2) Headache Status: Acute Review of Systems Constitutional: + weakness, + fatigue, No fever, No chills Respiratory: No cough, No sputum, No shortness of breath Cardiac: No chest pain, No edema, No palpitations Abdomen: No pain, No nausea, No vomiting, No diarrhea Medications Current Inpatient Medications Medications (Trade) Dose Ordered Sig/Sheron Route Start Time Stop Time Status Last Admin Dose Admin Acetaminophen (Tylenol Tab) 650 mg Q4H PRN PO 04/17/17 10:45 05/17/17 10:44 Ondansetron HCl (Zofran Inj) 4 mg Q6H PRN IV 04/17/17 10:45 05/17/17 10:44 Allopurinol (Zyloprim Tab) 300 mg DAILY PO 04/18/17 09:00 05/18/17 08:59 04/18/17 08:19 300 MG Amlodipine Besylate (Norvasc Tab) 10 mg DAILY PO 04/18/17 09:00 05/18/17 08:59 Simvastatin (Zocor Tab) 20 mg QPM PO 04/17/17 21:00 05/17/17 20:59 04/17/17 19:48 20 MG Furosemide (Lasix Tab) 20 mg DAILY PO 04/18/17 09:00 05/18/17 08:59 Hydralazine HCl (HydrALAZINE INJ) 5 mg Q6H PRN IV. 04/17/17 16:45 05/17/17 16:44 04/17/17 16:53 5 MG Clonidine HCl (Catapres Tab) 0.1 mg Q4H PRN PO 04/17/17 16:45 05/17/17 16:44 Hydralazine HCl (Apresoline Tab) 25 mg BID PO 04/18/17 21:00 05/17/17 20:59 Objective Vital Signs Date Time Temp Pulse Resp B/P (MAP) Pulse Ox O2 Delivery O2 Flow Rate FiO2 04/18/17 08:00 Room Air 04/18/17 07:51 36.8 97 16 145/84 (104) 95 Room Air 04/18/17 04:00 Room Air 04/18/17 03:52 37.0 100 18 137/81 (99) 94 04/18/17 00:01 Room Air 04/17/17 23:47 36.7 104 18 153/86 (108) 04/17/17 23:25 103 163/85 04/17/17 23:16 36.7 103 163/85 (111) 04/17/17 23:15 107 157/86 04/17/17 23:02 104 153/86 04/17/17 22:45 98 135/83 04/17/17 22:30 99 128/71 04/17/17 22:15 104 164/89 04/17/17 22:00 108 156/80 04/17/17 21:45 104 156/91 04/17/17 21:30 103 142/82 04/17/17 21:19 99 149/88 04/17/17 21:15 36.7 95 151/87 (108) 04/17/17 20:10 Room Air 04/17/17 19:43 36.5 93 16 153/90 (111) 95 Room Air 04/17/17 17:15 108 159/98 (118) 04/17/17 16:45 97 167/105 (125) 04/17/17 16:30 97 166/104 (124) 04/17/17 16:15 101 19 160/104 (122) 96 Room Air 04/17/17 16:00 37.0 96 20 152/94 (113) 96 Room Air 04/17/17 16:00 Room Air 04/17/17 12:00 Room Air 04/17/17 12:00 36.5 83 16 160/95 (116) 95 Room Air Physical Exam General Appearance: no apparent distress Respiratory/Chest: chest non-tender, lungs clear, normal breath sounds, no respiratory distress, no accessory muscle use Cardiovascular: regular rate, rhythm, no edema, no gallop, no JVD, no murmur Abdomen: normal bowel sounds, non tender, soft Extremities: normal range of motion, non-tender, normal inspection, no pedal edema, no calf tenderness Neurologic/Psychiatric: no motor/sensory deficits, alert, normal mood/affect, oriented x 3 Skin: normal color Lymphatic: no adenopathy Laboratory Results Last 24 Hours Test 04/18/17 06:10 White Blood Count 11.41 K/uL Red Blood Count 3.72 M/uL Hemoglobin 10.1 g/dL Hematocrit 30.9 % Mean Corpuscular Volume 83.1 fL Mean Corpuscular Hemoglobin 27.2 pg Mean Corpuscular Hemoglobin Concent 32.7 g/dl RDW Standard Deviation 47.4 fL RDW Coefficient of Variation 15.5 % Platelet Count 175 K/uL Mean Platelet Volume 9.5 fL Sodium Level 137 mmol/L Potassium Level 3.5 mmol/L Chloride Level 105 mmol/L Carbon Dioxide Level 22 mmol/L Anion Gap 10.0 mmol/L Blood Urea Nitrogen 83 mg/dl Creatinine 7.42 mg/dl Est Creatinine Clear Calc Drug Dose 16.1 ml/min Estimated GFR () 9.6 Estimated GFR (Non- 8.3 BUN/Creatinine Ratio 11.2 Random Glucose 90 mg/dl Calcium Level 9.2 mg/dl Assessment and Plan This is a 42 year old male with a PMH of CKD stage V, anemia of chronic disease , HTN, MGUS, MPGN, type 1, gout - presents for the initiation of hemodialysis CKD stage V in the setting of MPGN type 1 permacath inserted HD initiated on 04/17 plan for further dialysis outpatient dialysis to be set up for -- - aware Anemia of Chronic Disease continue weekly Procrit Hyperphosphatemia phosphate binders as per nephrology HTN blood pressure improving after fluid removal with HD continue amlodipine, hydralazine FULL CODE
[2017-04-18] MEDS: SIMVASTATIN 20 MG TAB PO SCH (20:57)
[2017-04-19] VITALS (21 sets, daily range): BP systolic 123–164; BP diastolic 82–97; PULSE 84–103; TEMP 36.5–36.9; O2SAT 91–95
[2017-04-19 06:32] LABS: HEMATOCRIT 30.8 % (42-52); HEMOGLOBIN 10.2 g/dL (14.0-18.0); MEAN CELL VOLUME 84.4 fL (80-100); MEAN CORPUSCULAR HEMOGLOBIN 27.9 pg (25-34); MEAN CORPUSCULAR HGB CONC 33.1 g/dl (32-36); MEAN PLATELET VOLUME 8.6 fL (7.4-10.4); PLATELET COUNT 149 K/uL (130-400); RED CELL DISTRIBUTION WIDTH CV 15.3 % (11.5-14.5); RED CELL DISTRIBUTION WIDTH SD 47.4 fL (36.4-46.3); WHITE BLOOD COUNT 10.95 K/uL (4.8-10.8)
[2017-04-19 07:20] LABS: CALCIUM 8.6 mg/dl (8.5-10.1); CREATININE 6.57 mg/dl (0.60-1.40); POTASSIUM 3.6 mmol/L (3.5-5.1)
[2017-04-19] MEDS: FUROSEMIDE 20 MG TAB PO SCH ×2 (07:51→16:00)
[2017-04-19] MEDS: ALLOPURINOL 300 MG TAB PO SCH (07:51)
[2017-04-19] MEDS: AMLODIPINE BESYLATE 5 MG TAB PO SCH ×2 (07:52→16:02)
--- NOTE | 2017-04-19 09:12 | Progress Note ---
Subjective Date of Service: Apr 19, 2017. Subjective Pt evaluation today including: conversation w/ patient, physical exam, lab review, review of studies, review of inpatient medication list Saw/examined the patient in room 218 c/o bruising throughout body, though healing No bleeding noted Denies any side effects to dialysis No other issues at this time Problem List Medical Problems: (1) Angioedema Status: Acute (2) Headache Status: Acute Review of Systems Constitutional: No fever, No chills Respiratory: No cough, No sputum, No shortness of breath Cardiac: No chest pain Abdomen: No pain, No nausea, No vomiting, No diarrhea Musculoskeletal: No joint pain, No muscle pain Heme: + abnormal bleeding/bruising Medications Current Inpatient Medications Medications (Trade) Dose Ordered Sig/Sheron Route Start Time Stop Time Status Last Admin Dose Admin Acetaminophen (Tylenol Tab) 650 mg Q4H PRN PO 04/17/17 10:45 05/17/17 10:44 Ondansetron HCl (Zofran Inj) 4 mg Q6H PRN IV 04/17/17 10:45 05/17/17 10:44 Allopurinol (Zyloprim Tab) 300 mg DAILY PO 04/18/17 09:00 05/18/17 08:59 04/19/17 07:51 300 MG Amlodipine Besylate (Norvasc Tab) 10 mg DAILY PO 04/18/17 09:00 05/18/17 08:59 04/18/17 18:48 10 MG Simvastatin (Zocor Tab) 20 mg QPM PO 04/17/17 21:00 05/17/17 20:59 04/18/17 20:57 20 MG Furosemide (Lasix Tab) 20 mg DAILY PO 04/18/17 09:00 05/18/17 08:59 Hydralazine HCl (HydrALAZINE INJ) 5 mg Q6H PRN IV. 04/17/17 16:45 05/17/17 16:44 04/17/17 16:53 5 MG Clonidine HCl (Catapres Tab) 0.1 mg Q4H PRN PO 04/17/17 16:45 05/17/17 16:44 Hydralazine HCl (Apresoline Tab) 25 mg BID PO 04/18/17 21:00 05/17/17 20:59 04/18/17 20:58 25 MG Objective Vital Signs Date Time Temp Pulse Resp B/P (MAP) Pulse Ox O2 Delivery O2 Flow Rate FiO2 04/19/17 07:48 36.7 94 16 134/90 (105) 94 Room Air 04/19/17 04:18 Room Air 04/19/17 03:15 36.7 99 18 130/86 (101) 94 04/19/17 00:45 Room Air 04/19/17 00:10 36.9 98 16 135/82 (99) 92 Room Air 04/18/17 20:55 36.8 92 20 145/89 (107) 94 04/18/17 20:00 Room Air 04/18/17 18:05 36.5 105 167/102 (123) 96 Room Air 04/18/17 17:40 36.6 95 149/104 (119) 04/18/17 17:30 101 157/100 04/18/17 17:15 100 149/100 04/18/17 17:00 99 162/108 04/18/17 16:45 103 146/110 04/18/17 16:30 102 171/106 04/18/17 16:15 102 152/112 04/18/17 16:00 Room Air 04/18/17 16:00 101 167/101 04/18/17 15:45 100 161/104 04/18/17 15:30 101 165/105 04/18/17 15:15 96 157/103 04/18/17 14:34 36.6 95 174/100 (124) 04/18/17 12:00 Room Air 04/18/17 11:54 36.7 95 16 158/95 (116) 91 Room Air Physical Exam General Appearance: no apparent distress Respiratory/Chest: chest non-tender, lungs clear, normal breath sounds, no respiratory distress, no accessory muscle use Cardiovascular: regular rate, rhythm, no edema, no murmur Abdomen: normal bowel sounds, non tender, soft Extremities: normal inspection, no pedal edema Laboratory Results Last 24 Hours Test 04/19/17 06:17 04/19/17 08:46 White Blood Count 10.95 K/uL Red Blood Count 3.65 M/uL Hemoglobin 10.2 g/dL Hematocrit 30.8 % Mean Corpuscular Volume 84.4 fL Mean Corpuscular Hemoglobin 27.9 pg Mean Corpuscular Hemoglobin Concent 33.1 g/dl RDW Standard Deviation 47.4 fL RDW Coefficient of Variation 15.3 % Platelet Count 149 K/uL Mean Platelet Volume 8.6 fL Sodium Level 136 mmol/L Potassium Level 3.6 mmol/L Chloride Level 102 mmol/L Carbon Dioxide Level 27 mmol/L Anion Gap 7.0 mmol/L Blood Urea Nitrogen 61 mg/dl Creatinine 6.57 mg/dl Est Creatinine Clear Calc Drug Dose 18.4 ml/min Estimated GFR () 11.2 Estimated GFR (Non- 9.6 BUN/Creatinine Ratio 9.3 Random Glucose 88 mg/dl Calcium Level 8.6 mg/dl Phosphorus Level 5.0 mg/dl Magnesium Level 2.1 mg/dl Assessment and Plan This is a 42 year old male with a PMH of CKD stage V, anemia of chronic disease , HTN, MGUS, MPGN, type 1, gout - presents for the initiation of hemodialysis CKD stage V in the setting of MPGN type 1 04/18 appreciate nephrology management dialysis today already set up for -W- as outpatient 04/17 permacath inserted HD initiated on 04/17 plan for further dialysis outpatient dialysis to be set up for -- - CM aware Anemia of Chronic Disease continue weekly Procrit Hyperphosphatemia phosphate binders as per nephrology HTN 04/19 increased dose of hydralazine helping if blood pressure increases again, may need to add Coreg 04/18 blood pressure improving after fluid removal with HD continue amlodipine, hydralazine FULL CODE
[2017-04-19 10:13] LABS: ALBUMIN 3.4 gm/dl (3.4-5.0); CALCIUM 9.2 mg/dl (8.5-10.1); CREATININE 6.66 mg/dl (0.60-1.40); POTASSIUM 3.4 mmol/L (3.5-5.1); TOTAL PROTEIN 7.1 gm/dl (6.4-8.2)
--- NOTE | 2017-04-19 14:25 | Nephrology Progress Note ---
Nephrology Progress Note Date of Service: Apr 19, 2017. Subjective 42 yo male with esrd who was admitted to initiate dialysis. tolerated dialysis well so far. dealing with hypertension. Objective Date Time Temp Pulse Resp B/P (MAP) Pulse Ox O2 Delivery O2 Flow Rate FiO2 04/19/17 12:00 96 147/96 04/19/17 11:45 94 149/91 04/19/17 11:30 90 152/86 04/19/17 11:15 84 149/88 04/19/17 11:00 94 164/96 04/19/17 10:45 92 153/94 04/19/17 10:30 93 155/93 04/19/17 10:05 36.5 86 147/88 (107) 04/19/17 08:00 Room Air 04/19/17 07:48 36.7 94 16 134/90 (105) 94 Room Air 04/19/17 04:18 Room Air 04/19/17 03:15 36.7 99 18 130/86 (101) 94 04/19/17 00:45 Room Air 04/19/17 00:10 36.9 98 16 135/82 (99) 92 Room Air 04/18/17 20:55 36.8 92 20 145/89 (107) 94 04/18/17 20:00 Room Air 04/18/17 18:05 36.5 105 167/102 (123) 96 Room Air 04/18/17 17:40 36.6 95 149/104 (119) 04/18/17 17:30 101 157/100 04/18/17 17:15 100 149/100 04/18/17 17:00 99 162/108 04/18/17 16:45 103 146/110 04/18/17 16:30 102 171/106 04/18/17 16:15 102 152/112 04/18/17 16:00 Room Air 04/18/17 16:00 101 167/101 04/18/17 15:45 100 161/104 04/18/17 15:30 101 165/105 04/18/17 15:15 96 157/103 04/18/17 14:34 36.6 95 174/100 (124) Physical Exam: General-aaox3 Eyes-no scleral icterus ENT-mmm Neck-supple Lungs-clear to auscultation Heart-regular Abdomen-bs+ s/nt/nd Extremities-no c/c/e Neuro-nonfocal Current Inpatient Medications Medications (Trade) Dose Ordered Sig/Sheron Route Start Time Stop Time Status Last Admin Dose Admin Acetaminophen (Tylenol Tab) 650 mg Q4H PRN PO 04/17/17 10:45 05/17/17 10:44 Ondansetron HCl (Zofran Inj) 4 mg Q6H PRN IV 04/17/17 10:45 05/17/17 10:44 Allopurinol (Zyloprim Tab) 300 mg DAILY PO 04/18/17 09:00 05/18/17 08:59 04/19/17 07:51 300 MG Amlodipine Besylate (Norvasc Tab) 10 mg DAILY PO 04/18/17 09:00 05/18/17 08:59 04/18/17 18:48 10 MG Simvastatin (Zocor Tab) 20 mg QPM PO 04/17/17 21:00 05/17/17 20:59 04/18/17 20:57 20 MG Furosemide (Lasix Tab) 20 mg DAILY PO 04/18/17 09:00 05/18/17 08:59 Hydralazine HCl (HydrALAZINE INJ) 5 mg Q6H PRN IV. 04/17/17 16:45 05/17/17 16:44 04/17/17 16:53 5 MG Clonidine HCl (Catapres Tab) 0.1 mg Q4H PRN PO 04/17/17 16:45 05/17/17 16:44 Hydralazine HCl (Apresoline Tab) 25 mg BID PO 04/18/17 21:00 05/17/17 20:59 04/18/17 20:58 25 MG Last 24 Hours Test 04/19/17 06:17 04/19/17 09:24 White Blood Count 10.95 K/uL Red Blood Count 3.65 M/uL Hemoglobin 10.2 g/dL Hematocrit 30.8 % Mean Corpuscular Volume 84.4 fL Mean Corpuscular Hemoglobin 27.9 pg Mean Corpuscular Hemoglobin Concent 33.1 g/dl RDW Standard Deviation 47.4 fL RDW Coefficient of Variation 15.3 % Platelet Count 149 K/uL Mean Platelet Volume 8.6 fL Sodium Level 136 mmol/L 137 mmol/L Potassium Level 3.6 mmol/L 3.4 mmol/L Chloride Level 102 mmol/L 101 mmol/L Carbon Dioxide Level 27 mmol/L 26 mmol/L Anion Gap 7.0 mmol/L 10.0 mmol/L Blood Urea Nitrogen 61 mg/dl 64 mg/dl Creatinine 6.57 mg/dl 6.66 mg/dl Est Creatinine Clear Calc Drug Dose 18.4 ml/min 18.1 ml/min Estimated GFR () 11.2 11.0 Estimated GFR (Non- 9.6 9.5 BUN/Creatinine Ratio 9.3 9.7 Random Glucose 88 mg/dl 107 mg/dl Calcium Level 8.6 mg/dl 9.2 mg/dl Phosphorus Level 5.0 mg/dl Magnesium Level 2.1 mg/dl Total Bilirubin 0.3 mg/dl Aspartate Amino Transf (AST/SGOT) 13 U/L Alanine Aminotransferase (ALT/SGPT) 10 U/L Alkaline Phosphatase 45 U/L Total Protein 7.1 gm/dl Albumin 3.4 gm/dl Globulin 3.7 gm/dl Albumin/Globulin Ratio 0.9 Assessment & Plan ESRD- Catheter working well. tolerated dialysis well. bp high since holding bp medications prior to dialysis. ok to give bp medications prior to dialysis since not taking off any fluid. main reason for dialysis is clearance of toxins. ok from renal perspective to go home once medically cleared by primary hospitalist. pt was concerned about bruising and may be from uremic platelet dysfunction. inr was good. lfts normal. if still here tomorrow, plan on dialysis again.
[2017-04-19] MEDS ORDERED: POTASSIUM CHLORIDE 10 MEQ TABCR PO STA (15:46)
[2017-04-19] MEDS: SIMVASTATIN 20 MG TAB PO SCH (20:56)
[2017-04-20] VITALS (18 sets, daily range): BP systolic 126–154; BP diastolic 45–99; PULSE 89–100; TEMP 36.6–37; O2SAT 94–96
[2017-04-20 06:13] LABS: HEMATOCRIT 32.1 % (42-52); HEMOGLOBIN 10.4 g/dL (14.0-18.0); MEAN CELL VOLUME 85.1 fL (80-100); MEAN CORPUSCULAR HEMOGLOBIN 27.6 pg (25-34); MEAN CORPUSCULAR HGB CONC 32.4 g/dl (32-36); MEAN PLATELET VOLUME 8.7 fL (7.4-10.4); PLATELET COUNT 173 K/uL (130-400); RED CELL DISTRIBUTION WIDTH CV 15.1 % (11.5-14.5); RED CELL DISTRIBUTION WIDTH SD 46.9 fL (36.4-46.3); WHITE BLOOD COUNT 11.19 K/uL (4.8-10.8)
[2017-04-20 06:59] LABS: CALCIUM 8.6 mg/dl (8.5-10.1); CREATININE 6.67 mg/dl (0.60-1.40); PHOSPHORUS 4.4 mg/dl (2.5-4.9); POTASSIUM 3.9 mmol/L (3.5-5.1)
--- NOTE | 2017-04-20 07:35 | Nephrology Progress Note ---
Nephrology Progress Note Date of Service: Apr 20, 2017. Subjective 42 yo male with esrd who is tolerating dialysis well and for dialysis again today. pt comfortable and ready to go home today. Objective Date Time Temp Pulse Resp B/P (MAP) Pulse Ox O2 Delivery O2 Flow Rate FiO2 04/20/17 04:10 36.8 89 21 150/90 (110) 96 Room Air 04/20/17 04:04 Room Air 04/20/17 00:20 Room Air 04/19/17 23:13 36.8 98 20 123/83 (96) 95 Room Air 04/19/17 20:17 36.8 89 16 133/86 (102) 91 Room Air 04/19/17 20:00 Room Air 04/19/17 16:00 94 Room Air 04/19/17 15:56 36.5 96 16 145/87 (106) 94 Room Air 04/19/17 14:26 36.5 98 152/87 (108) 04/19/17 13:15 103 145/88 04/19/17 13:00 100 152/97 04/19/17 12:45 96 151/92 04/19/17 12:30 100 152/82 04/19/17 12:15 100 144/91 04/19/17 12:00 96 147/96 04/19/17 11:45 94 149/91 04/19/17 11:30 90 152/86 04/19/17 11:15 84 149/88 04/19/17 11:00 94 164/96 04/19/17 10:45 92 153/94 04/19/17 10:30 93 155/93 04/19/17 10:05 36.5 86 147/88 (107) 04/19/17 08:00 Room Air 04/19/17 07:48 36.7 94 16 134/90 (105) 94 Room Air Physical Exam: General-aaox3 Eyes-no scleral icterus ENT-mmm Neck-supple Lungs-cta Heart-regular Abdomen-bs+ s/nt/nd Extremities-no c/c/e Neuro-nonfocal Current Inpatient Medications Medications (Trade) Dose Ordered Sig/Sheron Route Start Time Stop Time Status Last Admin Dose Admin Acetaminophen (Tylenol Tab) 650 mg Q4H PRN PO 04/17/17 10:45 05/17/17 10:44 Ondansetron HCl (Zofran Inj) 4 mg Q6H PRN IV 04/17/17 10:45 05/17/17 10:44 Allopurinol (Zyloprim Tab) 300 mg DAILY PO 04/18/17 09:00 05/18/17 08:59 04/19/17 07:51 300 MG Amlodipine Besylate (Norvasc Tab) 10 mg DAILY PO 04/18/17 09:00 05/18/17 08:59 04/19/17 16:02 10 MG Simvastatin (Zocor Tab) 20 mg QPM PO 04/17/17 21:00 05/17/17 20:59 04/19/17 20:56 20 MG Furosemide (Lasix Tab) 20 mg DAILY PO 04/18/17 09:00 05/18/17 08:59 04/19/17 16:00 20 MG Hydralazine HCl (HydrALAZINE INJ) 5 mg Q6H PRN IV. 04/17/17 16:45 05/17/17 16:44 04/17/17 16:53 5 MG Clonidine HCl (Catapres Tab) 0.1 mg Q4H PRN PO 04/17/17 16:45 05/17/17 16:44 Hydralazine HCl (Apresoline Tab) 25 mg BID PO 04/18/17 21:00 05/17/17 20:59 04/19/17 20:56 25 MG Last 24 Hours Test 04/19/17 09:24 04/20/17 05:53 Sodium Level 137 mmol/L 135 mmol/L Potassium Level 3.4 mmol/L 3.9 mmol/L Chloride Level 101 mmol/L 99 mmol/L Carbon Dioxide Level 26 mmol/L 29 mmol/L Anion Gap 10.0 mmol/L 7.0 mmol/L Blood Urea Nitrogen 64 mg/dl 47 mg/dl Creatinine 6.66 mg/dl 6.67 mg/dl Est Creatinine Clear Calc Drug Dose 18.1 ml/min 17.9 ml/min Estimated GFR () 11.0 11.0 Estimated GFR (Non- 9.5 9.5 BUN/Creatinine Ratio 9.7 7.1 Random Glucose 107 mg/dl 87 mg/dl Calcium Level 9.2 mg/dl 8.6 mg/dl Total Bilirubin 0.3 mg/dl Aspartate Amino Transf (AST/SGOT) 13 U/L Alanine Aminotransferase (ALT/SGPT) 10 U/L Alkaline Phosphatase 45 U/L Total Protein 7.1 gm/dl Albumin 3.4 gm/dl Globulin 3.7 gm/dl Albumin/Globulin Ratio 0.9 White Blood Count 11.19 K/uL Red Blood Count 3.77 M/uL Hemoglobin 10.4 g/dL Hematocrit 32.1 % Mean Corpuscular Volume 85.1 fL Mean Corpuscular Hemoglobin 27.6 pg Mean Corpuscular Hemoglobin Concent 32.4 g/dl RDW Standard Deviation 46.9 fL RDW Coefficient of Variation 15.1 % Platelet Count 173 K/uL Mean Platelet Volume 8.7 fL Phosphorus Level 4.4 mg/dl Magnesium Level 2.1 mg/dl Assessment & Plan ESRD- Catheter working well. for dialysis again today. will attempt 500cc fluid removal to help with bp. HTN: currently on hydralazine 25mg po bid and lasix 20mg a day and norvasc 10mg a day. would like to increase the hydralazine to 37.5mg po bid since not at goal bp.
[2017-04-20] MEDS: ALLOPURINOL 300 MG TAB PO SCH (07:59)
[2017-04-20] MEDS: FUROSEMIDE 20 MG TAB PO SCH (08:23)
[2017-04-20] MEDS: AMLODIPINE BESYLATE 5 MG TAB PO SCH (08:23)
--- NOTE | 2017-04-20 14:01 | Progress Note ---
Subjective Date of Service: Apr 20, 2017. Subjective Pt evaluation today including: conversation w/ patient, physical exam, lab review, review of studies, review of inpatient medication list Saw/examined the patient in dialysis He is doing well, no problems/issues to note Problem List Medical Problems: (1) Angioedema Status: Acute (2) Headache Status: Acute Review of Systems Constitutional: No weakness Respiratory: No shortness of breath Cardiac: No chest pain Male : No dysuria, No urinary frequency Heme: No abnormal bleeding/bruising Medications Current Inpatient Medications Medications (Trade) Dose Ordered Sig/Sheron Route Start Time Stop Time Status Last Admin Dose Admin Acetaminophen (Tylenol Tab) 650 mg Q4H PRN PO 04/17/17 10:45 05/17/17 10:44 Ondansetron HCl (Zofran Inj) 4 mg Q6H PRN IV 04/17/17 10:45 05/17/17 10:44 Allopurinol (Zyloprim Tab) 300 mg DAILY PO 04/18/17 09:00 05/18/17 08:59 04/20/17 07:59 300 MG Amlodipine Besylate (Norvasc Tab) 10 mg DAILY PO 04/18/17 09:00 05/18/17 08:59 04/20/17 08:23 10 MG Simvastatin (Zocor Tab) 20 mg QPM PO 04/17/17 21:00 05/17/17 20:59 04/19/17 20:56 20 MG Furosemide (Lasix Tab) 20 mg DAILY PO 04/18/17 09:00 05/18/17 08:59 04/20/17 08:23 20 MG Hydralazine HCl (HydrALAZINE INJ) 5 mg Q6H PRN IV. 04/17/17 16:45 05/17/17 16:44 04/17/17 16:53 5 MG Clonidine HCl (Catapres Tab) 0.1 mg Q4H PRN PO 04/17/17 16:45 05/17/17 16:44 Hydralazine HCl (Apresoline Tab) 37.5 mg BID PO 04/20/17 09:00 05/17/17 20:59 04/20/17 08:22 37.5 MG Objective Vital Signs Date Time Temp Pulse Resp B/P (MAP) Pulse Ox O2 Delivery O2 Flow Rate FiO2 04/20/17 12:35 36.8 98 16 136/88 (104) 94 Room Air 04/20/17 12:32 36.9 95 141/86 (104) 04/20/17 11:45 100 142/90 04/20/17 11:30 98 137/83 04/20/17 11:15 98 151/84 04/20/17 11:00 95 148/85 04/20/17 10:45 99 149/87 04/20/17 10:30 93 152/86 04/20/17 10:15 97 154/45 04/20/17 10:00 100 134/83 04/20/17 09:45 95 147/74 04/20/17 09:30 94 139/88 04/20/17 09:15 94 147/84 04/20/17 09:05 37.0 89 146/87 (106) 04/20/17 08:00 Room Air 04/20/17 07:34 36.7 95 20 146/99 (115) 95 Room Air 04/20/17 04:10 36.8 89 21 150/90 (110) 96 Room Air 04/20/17 04:04 Room Air 04/20/17 00:20 Room Air 04/19/17 23:13 36.8 98 20 123/83 (96) 95 Room Air 04/19/17 20:17 36.8 89 16 133/86 (102) 91 Room Air 04/19/17 20:00 Room Air 04/19/17 16:00 94 Room Air 04/19/17 15:56 36.5 96 16 145/87 (106) 94 Room Air 04/19/17 14:26 36.5 98 152/87 (108) Physical Exam General Appearance: no apparent distress Respiratory/Chest: lungs clear, normal breath sounds, no respiratory distress, no accessory muscle use Cardiovascular: regular rate, rhythm, no edema, no murmur Laboratory Results Last 24 Hours Test 04/20/17 05:53 White Blood Count 11.19 K/uL Red Blood Count 3.77 M/uL Hemoglobin 10.4 g/dL Hematocrit 32.1 % Mean Corpuscular Volume 85.1 fL Mean Corpuscular Hemoglobin 27.6 pg Mean Corpuscular Hemoglobin Concent 32.4 g/dl RDW Standard Deviation 46.9 fL RDW Coefficient of Variation 15.1 % Platelet Count 173 K/uL Mean Platelet Volume 8.7 fL Sodium Level 135 mmol/L Potassium Level 3.9 mmol/L Chloride Level 99 mmol/L Carbon Dioxide Level 29 mmol/L Anion Gap 7.0 mmol/L Blood Urea Nitrogen 47 mg/dl Creatinine 6.67 mg/dl Est Creatinine Clear Calc Drug Dose 17.9 ml/min Estimated GFR () 11.0 Estimated GFR (Non- 9.5 BUN/Creatinine Ratio 7.1 Random Glucose 87 mg/dl Calcium Level 8.6 mg/dl Phosphorus Level 4.4 mg/dl Magnesium Level 2.1 mg/dl Assessment and Plan This is a 42 year old male with a PMH of CKD stage V, anemia of chronic disease , HTN, MGUS, MPGN, type 1, gout - presents for the initiation of hemodialysis CKD stage V in the setting of MPGN type 1 04/19 plan is to d/c home today he will receive dialysis today dialysis on as outpatient 04/18 appreciate nephrology management dialysis today already set up for --F as outpatient 04/17 permacath inserted HD initiated on 04/17 plan for further dialysis outpatient dialysis to be set up for - CM aware Anemia of Chronic Disease continue weekly Procrit Hyperphosphatemia phosphate binders as per nephrology HTN 04/19 increased dose of hydralazine helping if blood pressure increases again, may need to add Coreg 04/18 blood pressure improving after fluid removal with HD continue amlodipine, hydralazine FULL CODE
[2017-04-20] MEDS ORDERED: HYDR-4716 PO (14:04)
--- NOTE | 2017-04-20 14:14 | Discharge Instructions ---
Discharge Instructions Date of Service Apr 20, 2017. Admission Reason for Admission: New Onset Esrd Discharge Discharge Diagnosis / Problem: New onset hemodialysis Discharge Goals Goal(s): Decrease discomfort, Improve function, Diagnostic testing, Therapeutic intervention Activity Recommendations Activity Limitations: resume your previous activity . Instructions / Follow-Up Instructions / Follow-Up Please follow-up with Dr. Leo on April 24 at 12:25PM * Your dose of hydralazine has increased to 37.5mg twice a day * You will go for dialysis on Sunday, Sunday and Sunday * Please stop taking prednisone Current Hospital Diet Patient's current hospital diet: Renal Diet Discharge Diet Recommended Diet: Renal Diet Procedures Procedures Performed: Perm Catheter Insertion, Right Jugular Vein Ultrasound Localization of Right Jugular Vein Flurosocpy for Comfirmation Pending Studies Studies pending at discharge: no Medical Emergencies . Who to Call and When: Medical Emergencies: If at any time you feel your situation is an emergency, please call 911 immediately. . Non-Emergent Contact Non-Emergency issues call your: Primary Care Provider, Electronic Instrument Trades Worker . . "Provider Documentation" section prepared by Luis Blankenship. . VTE Core Measure Inpt VTE Proph given/why not?: SCD's
--- NOTE | 2017-04-20 14:15 | Discharge Summary ---
Discharge Summary Date of Service Apr 20, 2017. Discharge Summary Admission Date: Apr 17, 2017 at 10:18 Discharge Date: Apr 20, 2017 Discharge Disposition: Home Principal Diagnosis: ESRD on HD Uncontrolled HTN Medication Reconciliation Changed Medications: Hydralazine HCl (Hydralazine HCl) 25 Mg Tab 37.5 MG PO BID for 30 Days, #45 TABS (Changed from: Hydralazine Hcl (Apresoline ) 10 Mg Tab 10 Mg PO BID) Continued Medications: Allopurinol (Zyloprim) 300 Mg Tab 300 MG PO DAILY, TAB Amlodipine Besylate (Amlodipine Besylate) 5 Mg Tab 10 MG PO DAILY, TAB Diphenhydramine Hcl (Benadryl Allergy) 25 Mg Cap 2 CAP PO prn PRN for allergic reaction for 30 Days, #60 CAP 2 Refills Epoetin Aiden (Procrit) 10,000 [place] 28099 UNITS SQ WK mondays Furosemide (Lasix) 20 Mg Tab 20 MG PO DAILY, #30 TAB Simvastatin (Zocor) 20 Mg Tab 20 MG PO QPM, TAB Discontinued Medications: Prednisone (Prednisone) 5 Mg Tab 5 MG PO DAILY, TAB Sodium Bicarbonate (Antacid) (Sodium Bicarbonate) 650 Mg Tab 1 TAB PO DAILY for 30 Days, #30 TAB 5 Refills Admission Information HPI (per Admitting provider): 42 year old male sent for direct admission from Dr. Phelps's office for initiation of dialysis. 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 Patient is on the transplant list. His renal functions have been slowly declining. He has had increasing lower extremity edema and uremic symptoms. He reports exertional shortness of breath. No chest pain, lightheadedness, dizziness, diaphoresis, or syncopal events. He reports a good appetite. No abdominal pain, nausea, vomiting, or diarrhea. He continues to make urine. He denies urinary symptoms. No fevers or chills. At the time of my exam, patient is resting in bed in no acute distress. Physical Exam (per Admitting): General Appearance: WD/WN, no apparent distress Head: normocephalic, atraumatic Eyes: normal inspection, EOMI, sclerae normal ENT: hearing grossly normal, + pertinent finding (mucous membranes moist) Neck: supple, no JVD, trachea midline Respiratory/Chest: lungs clear, normal breath sounds, no respiratory distress Cardiovascular: regular rate, rhythm, no edema, + pertinent finding (trace edema BLLE) Abdomen/GI: normal bowel sounds, non tender, soft, no organomegaly Extremities/Musculoskelatal: normal inspection, no calf tenderness, normal capillary refill Neurologic/Psych: no motor/sensory deficits, alert, normal mood/affect, oriented x 3 Skin: normal color, warm/dry Hospital Course This is a 42 year old male with a PMH of CKD stage V, anemia of chronic disease , HTN, MGUS, MPGN, type 1, gout - presents for the initiation of hemodialysis CKD stage V in the setting of MPGN type 1 04/19 plan is to d/c home today he will receive dialysis today dialysis on -W-F as outpatient 04/18 appreciate nephrology management dialysis today already set up for M-W-F as outpatient 04/17 permacath inserted HD initiated on 04/17 plan for further dialysis outpatient dialysis to be set up for --F - CM aware Anemia of Chronic Disease continue weekly Procrit Hyperphosphatemia phosphate binders as per nephrology HTN 04/19 increased dose of hydralazine helping if blood pressure increases again, may need to add Coreg 04/18 blood pressure improving after fluid removal with HD continue amlodipine, hydralazine FULL CODE Total time spent on discharge = 40 minutes This includes examination of the patient, discharge planning, medication reconciliation, and communication with other providers. Discharge Instructions Please follow-up with Dr. Leo on April 24 at 12:25PM * Your dose of hydralazine has increased to 37.5mg twice a day * You will go for dialysis on Sunday, Sunday and Sunday * Please stop taking prednisone
== END 2017-04-20 16:21 | disposition home or self-care (01) | DRG 682 ==
LOC: C.MSICU 10:18 → C.2T 19:23
PROVIDERS: ADMIT Internal Medicine; ATTEND Family Medicine
PROC: 05HM33Z Insertion of Infusion Device into Right Internal Jugular Vein, Percutaneous Approach (ICD-10-PCS; principal; 2017-04-17 15:45)
DX: I12.0 Hypertensive chronic kidney disease with stage 5 chronic kidney disease or end stage renal disease (principal); N18.6 End stage renal disease; E78.5 Hyperlipidemia, unspecified; D63.1 Anemia in chronic kidney disease; D47.2 Monoclonal gammopathy; M10.9 Gout, unspecified; E83.39 Other disorders of phosphorus metabolism; Z87.891 Personal history of nicotine dependence

== ENCOUNTER → 2017-05-10 | Outpatient (CLI) | payer OTHER ==
[~2017-05-10] VITALS: Ht 180.3 cm; Wt 104.9 kg
[~2017-05-10] MED LIST changes: -FEXO1TAB46 PO; -HYDR-4715 PO; +HYDR-4716 PO; +NRV5 PO; -PRED-301 PO; +SIMV20TA2 PO; -SIMV40TA4 PO; -SODI650T8 PO
[2017-05-10 09:35] VITALS: BP 119/76; PULSE 87; Ht 180.3 cm; Wt 104.9 kg
== END | disposition home or self-care (01) ==
LOC: C.NEUR 08:57
PROVIDERS: ATTEND Internal Medicine Pulmonary Disease
DX: G47.33 Obstructive sleep apnea (adult) (pediatric) (principal); G25.81 Restless legs syndrome; F45.8 Other somatoform disorders

== ENCOUNTER → 2017-05-14 | Outpatient (CLI) | payer OTHER ==
--- NOTE | 2017-05-15 06:21 | SPLIT NIGHT TECHNICIAN REPORT ---
[facility] Split Night Polysomnogram - Belt And Link Assembly Supervisor Report Study date: 05/14/2017 Referring Physician: Dr. Herb Moreno DO Name: SONNY SHI Belt And Link Assembly Supervisor: HOLA Luke. Date of : 1975 Height: 42 years, Height 5' 11" Sex: Male Weight: 231 lbs Age: 42 Neck Circum: 17 inches BMI: Medications: 32.21 ALLOPURINOL 300 MG, AMLODIPINE BESYLATE 10 MG, EPINEPHRINE 0.3 MG, FUROSEMIDE 20 MG, HYDRALAZINE HCL 10 MG, SIMVASTATIN 20 MG, SODIUM BICARBONATE 650 MG Patient History PATIENT HAS HISTORY OF RESTLESS LEGS SYNDROME, SNORING AND WITNESSED APNEAS. ALSO HAS HISTORY OF KIDNEY DISEASE AND HYPERTENSION. HE IS HERE TODAY FOR AN EVALUATION FOR HENRRY. ESS = 12 RM 7 Parameters Monitored NPSG: E1-M2, E2-M1, Fp1-M2, Fp2-M1, F3-M2, F4-M2, F4-M1, C3-M2, C4-M2, C4-M1, O1-M2, O2-M2, O2-M1, T3-M2, T4-M1, P3-M2, P4-M1, CHIN1, CHIN2, HR, EKG, Legs, PFLOW, SNOR, FLOW, CFLOW, Tidal Volume, THOR, ABDO, SpO2, PLTH, CPRESS, ETCO2 Wave, ETCO2, pH SLEEP SUMMARY DATA DIAGNOSTIC TREATMENT Lights Out: 10:31:49 PM 12:54:19 AM Lights On: 12:45:49 AM 5:59:49 AM Total Recording Time (TRT): 134.5 min. 306.0 min. Total Sleep Time (TST): 109.0 min. 281.0 min. NREM Time: 92.5 min. 209.0 min. REM Time: 16.5 min. 72.0 min. Sleep Period Time (SPT): 124.0 min. 302.0 min. Sleep Efficiency (SE): 81 % 92 % Sleep Latency: 10.0 min. 3.5 min. Arousal Index: 16.0 9.0 PAP Treatment Levels: 4, 6, 8, 9, 11 * Optimal Pressure(s) SLEEP STAGING DATA DIAGNOSTIC TREATMENT Duration (min) TST % Duration (min) TST % Stage Wake: 25.0 min. -- 24.5 min. -- WASO: 15.0 min. -- 21.0 min. -- NREM: 92.5 min. 85 % 209.0 min. 74 % Stage N1: 7.0 min. 6 % 10.0 min. 4 % Stage N2: 82.0 min. 75 % 149.5 min. 53 % Stage N3: 3.5 min. 3 % 49.5 min. 18 % REM: 16.5 min. 15 % 72.0 min. 26 % POSITIONAL DATA Event Count Index Event Count Index Supine: 147 107.5 65 13.5 Supine NREM: 111 101.6 61 16.9 Supine REM: 36 131 4 3 Non-Supine: 53 117.9 N/A N/A Non-Supine NREM: 53 117.9 N/A N/A Non-Supine REM: N/A N/A N/A N/A AROUSAL SUMMARY DATA: Event Count Index Event Count Index Apnea Arousals: 5 53.4 1 3.6 Hypopnea Arousals: 10 5.5 4 0.9 Snore Arousals: 1 0.6 2 0.4 PLM Arousals: 0 0.0 8 1.7 Non-Specific Arousals: 10 5.5 22 4.7 Total Arousals: 29 16.0 42 9.0 MYOCLONUS (PLM) Event Count Index Event Count Index PLM: 8 4.4 128 27.3 PLM AROUSAL: 0 0.0 8 1.7 PLM W/O AROUSAL 8 4.4 120 25.6 PLM W/RESP EVENT 1 0.0 3 0.0 MYOCLONUS (PLM) Event Count Index Event Count Index LM: 4 58.9 47 10.0 LM AROUSAL: 4 2.2 4 0.9 LM W/O AROUSAL LM W/RESP EVENT LM NON SPECIFIC 50 27.5 156 33.3 HEART RATE DATA DIAGNOSTIC TREATMENT Sleep (bpm): 82 73 REM (bpm): 83 95 NREM (bpm): 83 93 Tachycardia Count: 0 0 Tachycardia Duration: 0.00 0 Bradycardia Count: 0 0 Bradycardia Duration: 0.00 0 DIAGNOSTIC PORTION TREATMENT PORTION RESPIRATORY DATA Event Count Index Event Count Index AHI: -- 110.1 -- 13.5 RDI: -- 110.1 -- 14 Obstructive Apnea: 20 11.0 5 1.1 Central Apnea: 29 16.0 12 2.6 Mixed Apnea: 48 26.4 0 0.0 Hypopnea: 103 56.7 46 9.8 RERA: 0 0.0 2 0.4 Total Apneas: 97 53.4 17 3.6 RESPIRATORY DATA REM NREM SLEEP REM NREM SLEEP Supine Position: Obstructive Apneas: 11 9 20 0 5 5 Central Apneas: 0 29 29 1 11 12 Mixed Apneas: 11 37 48 0 0 0 Hypopneas: 14 36 50 3 43 46 RERA 0 0 0 0 2 2 Total Supine Events: 36 111 147 4 61 65 Supine AHI: 131 101.6 107.5 3 16.9 13.5 Supine RDI: 130.9 101.6 107.5 3.3 17.5 13.9 REM NREM SLEEP REM NREM SLEEP Non-Supine Position: Obstructive Apneas: N/A 0 0 N/A N/A N/A Central Apneas: N/A 0 0 N/A N/A N/A Mixed Apneas: N/A 0 0 N/A N/A N/A Hypopneas: N/A 53 53 N/A N/A N/A RERA N/A 0 0 N/A N/A N/A Total Supine Events: N/A 53 53 N/A N/A N/A Supine AHI: N/A 117.9 117.9 N/A N/A N/A Supine RDI: N/A 117.9 117.9 N/A N/A N/A OXYGEN DESTAURATION DATA: Event Count Index Event Count Index REM Desaturations: 40 145.5 4 3.3 NREM Desaturations: 177 114.8 60 17.2 SNORE DATA DIAGNOSTIC TREATMENT Snore Time: 7.5 12:57:49 AM Snore TST%: 5 1 Snore Arousal Count: 1 2 Snore Arousal Index: 0.6 0.4 Desaturation Event Summary: Minimum %SpO2 Event Count Mean/Min/Max Duration(sec.) Desaturation Index % Time In Bed > 90 252 17.0 / 4.5 / 57.5 45.2 76.4 86 - 90 76 16.1 / 4.5 / 24.3 99.5 10.5 81 - 85 3 24.0 / 8.8 / 34.0 10.4 3.9 76 - 80 4 25.1 / 12.3 / 31.8 13.7 4.0 71 - 75 6 13.5 / 6.0 / 31.8 30.1 2.7 66 - 70 1 9.5 / 9.5 / 9.5 13.6 1.0 61 - 65 3 14.3 / 12.5 / 16.8 92.9 0.4 56 - 60 5 10.8 / 6.8 / 16.8 112.0 0.6 51 - 55 1 11.3 / 11.3 / 11.3 35.0 0.4 < 50 0 N/A 0.0 0.1 OXYGEN SATURATION DATA DIAGNOSTIC TREATMENT SpO2 Mean Sleep: 83 % 94 % SpO2 Mean REM: 83 % 95 % SpO2 Mean NREM: 83 % 93 % SpO2 Minimum Sleep: 50 % 85 % SpO2 Minimum REM: 66 % 91 % SpO2 Minimum NREM: 50 % 85 % Time Below 90% (TST): 75.6 3.7 Time Below 88% (TST): 63.6 0.7 Total REM NREM Awake <50% 0.3 min. 0.0 min. 0.3 min. 0.0 min. 51 - 60% 4.4 min. 0.0 min. 3.9 min. 0.5 min. 61 - 70% 6.4 min. 0.3 min. 5.3 min. 0.8 min. 71 - 80% 29.5 min. 6.9 min. 22.2 min. 0.4 min. 81 - 90% 63.1 min. 6.6 min. 47.2 min. 9.4 min. 91 - 100% 334.7 min. 74.8 min. 222.6 min. 37.4 min. Average 91 92 90 92 Minimum SpO2 50 66 50 57 Desaturation Event Index 39.6 29.8 47.2 10.9 # Desat. Events below 89% 231 40 187 4 Time(%) with Saturation below 89% 17.6 2.8 13.6 1.1 Time(min.) with Saturation below 89% 77.0 12.2 59.8 5.0 Recording Belt And Link Assembly Supervisor Comments: Mr. Shi slept in the left and supine positions. No cardiac arrhythmia noted. Leg movements noted. No bruxism noted. Snoring was noted and scored as a 3 on a scale of 1 through 5. (0=no snoring, 5=snoring loud enough to be heard through a closed door or down the [address] way) At 12:45 am Mr. Shi has met specific Split-Night criteria during the diagnostic portion of this study. CPAP was initiated at +4 CMH2O and up-titrated to an optimal level of +11 CMH2O, which nearly eliminated all respiratory events and snoring. A Mae and Pain Doctor Simplus size medium full-face mask was used during titration Mr. Shi awoke to use the restroom 0 times during the night. Mr. Shi stated I slept as well as I do when I am in my own bed. The final report will be interpreted and signed by a sleep physician. The completed physician report will then be placed in the patient medical record. Therapy Event: Therapy (cm H20) 0 4 6 8 9 11 Total Time at Pressure (min.) 134.0 10.6 17.2 25.3 14.9 237.5 TST at Pressure (min.) 109.0 7.1 17.2 25.3 13.4 218.0 # Periods 1 1 1 1 1 1 Sleep Onset (min.) 10.0 3.5 0.0 0.0 0.0 0.0 REM Onset (min.) 77.5 N/A N/A N/A N/A 4.5 Sleep Efficiency % 81 66 100 100 90 91 Wakefulness (%) 18.7 33.1 0.0 0.0 10.0 8.2 Wakefulness (min.) 25.0 3.5 0.0 0.0 1.5 19.5 NREM 1 (%) 5.2 28.3 0.0 0.0 3.3 2.7 NREM 1 (min.) 7.0 3.0 0.0 0.0 0.5 6.5 NREM 2 (%) 61.2 38.6 86.8 57.6 86.6 43.4 NREM 2 (min.) 82.0 4.1 14.9 14.6 12.9 103.0 NREM 3 (%) 2.6 0.0 13.2 42.4 0.0 15.4 NREM 3 (min.) 3.5 0.0 2.3 10.7 0.0 36.5 REM (%) 12.3 0.0 0.0 0.0 0.0 30.3 REM (min.) 16.5 0.0 0.0 0.0 0.0 72.0 # Arousals 29 3 5 6 7 21 Arousal Index 16.0 25.4 17.5 14.2 31.3 5.8 # Snore 295 3 45 14 25 24 Snore Index 162.4 25.4 157.1 33.2 111.7 6.6 AHI 110.1 93.2 55.9 28.4 53.6 3.3 AHI Supine 107.5 93.2 55.9 28.4 53.6 3.3 AHI Non-Supine 117.9 N/A N/A N/A N/A N/A NREM AHI 106.4 93.2 55.9 28.4 53.6 3.3 REM AHI 130.9 N/A N/A N/A N/A 3.3 RDI 110.1 93.2 55.9 30.8 58.1 3.3 # Obstructive 20 4 0 0 1 0 # Central Ap 29 2 1 1 5 3 # Mixed 48 0 0 0 0 0 # Hypopneas 103 5 15 11 6 9 RERAS 0 0 0 1 1 0 Total Respiratory Events 200 11 16 13 13 12 Time Below SpO2 89.00% (min.) 70.5 0.6 0.3 0.6 0.1 0.1 Mean NREM SpO2 (%) 83 92 92 92 93 94 Mean REM SpO2 (%) 83 N/A N/A N/A N/A 95 Mean Sleep SpO2 (%) 83 92 92 92 93 94 Min NREM SpO2 (%) 50 85 86 85 88 88 Min REM SpO2 (%) 66 N/A N/A N/A N/A 91 Position Supine (min.) 82.0 7.1 17.2 25.3 13.4 218.0 Position Non-supine (min.) 27.0 0.0 0.0 0.0 0.0 0.0 LM Index Sleep 63.3 16.9 59.3 64.0 44.7 32.8 LM Index NREM 60.3 16.9 59.3 64.0 44.7 40.3 LM Index REM 80.0 N/A N/A N/A N/A 17.5 Mean Heart Rate (bpm) 82 81 81 77 73 71 Min Heart Rate (bpm) 72 76 73 70 67 63
--- NOTE | 2017-05-20 17:50 | Sleep Study ---
Sleep Study Report Date of Service: 05/14/2017 Sleep Study Report CLINICAL DATA: The patient is a 42-year-old male with a history of snoring, observed apnea, and nocturnal gasping. He has an [place] Sleepiness Scale score of 12. His BMI is 32.21. This was an in-lab split night sleep study. SLEEP ARCHITECTURE: The study was divided into a diagnostic and therapeutic portion with nasal CPAP being utilized during the therapeutic portion of the study. During the diagnostic portion of the study the sleep period time was 124 minutes. The total sleep time was 109 minutes. The sleep efficiency was modestly reduced to 81 percent. Sleep latency was 10 minutes. Sleep consisted of stage N1 6 percent, stage N2 75 percent, stage N3 3 percent, stage REM 15 percent. During the therapeutic portion of the study the sleep period time was 302 minutes. The total sleep time was 281 minutes. The sleep efficiency was 92 percent. The sleep latency was 3.5 minutes. Sleep consisted of stage N1 4 percent, stage N2 53 percent, stage N3 18 percent, stage REM 26 percent. AROUSAL DATA: During the diagnostic portion of the study the patient had 29 arousals including 5 apnea arousals, 10 hypopnea arousals, 1 snoring arousal, and 10 nonspecific arousals. The arousal index was 16. During the therapeutic portion of the study the patient had a total of 42 arousals including 1 apnea arousal, 4 hypopnea arousals, 2 snoring arousals, 8 PLM arousals, and 22 nonspecific arousals. The arousal index is 9. PLM DATA: During the diagnostic portion of the study the patient had a total of 8 periodic limb movements for a PLM index of 4.4. There were 0 arousals associated with limb movements. During the therapeutic portion of the study the patient had 128 periodic limb movements for a PLM index of 27.3. There were 8 arousals associated with limb movements for a PLM arousal index of 1.7. EKG: The cardiac rates 73-95 beats per minute. No arrhythmias were noted. RESPIRATORY DATA: During the diagnostic portion of the study the patient had a total of 200 respiratory events including 20 obstructive apneas, 29 central apneas, 48 mixed apneas, and 103 hypopneas. Hypopneas were scored according to the 4 percent desaturation rule. The apnea-hypopnea index was severely elevated at 110.1. During the therapeutic portion of the study the patient's respiratory events were treated with nasal CPAP. He had a total of 63 respiratory events including 5 obstructive apneas, 12 central apneas, and 46 hypopneas. The apnea- hypopnea index was 13.5 events per hour. At the final pressure of 11 centimeters the apnea-hypopnea index was only 3.3 events per hour. He was at that pressure for a total of 237.5 minutes. OXIMETRY DATA: During the diagnostic portion of the study the mean saturation was 83 percent and the minimum saturation was 50 percent. There was a total of 63.6 minutes with saturations less than 88 percent. During the therapeutic portion of the study the mean saturation was 94 percent and the minimum saturation was 85 percent. There was 0.7 minutes with saturations less than 88 percent. [employer]OYEE [employer]ATIONS REPRESENTATIVE COMMENTS: The patient slept in the left and supine positions. No cardiac arrhythmia noted. Leg movements noted. No bruxism noted. Snoring was noted and scored as a 3 on a scale of 1 through 5. At 12:45 a.m. the patient met specific split night criteria during the diagnostic portion of this study. CPAP was initiated at 4 centimeters and up titrated to an optimal level of 11 centimeters which nearly eliminated all respiratory events and snoring. A [employer] Simplus full face mask size medium was used during titration. IMPRESSIONS: 1. Severe obstructive sleep apnea-significantly improved with nasal CPAP at 11 centimeters COMMENTS: The patient has severe sleep apnea. This was very well treated with nasal CPAP. There was a marked improvement in sleep efficiency and a significant decrease in the arousal index. There was dramatic improvement in oxygenation during the therapeutic portion. He tolerated CPAP very well. There was an increase in the limb movements during the therapeutic portion of the study. This is not unexpected with resolution of sleep disordered breathing. RECOMMENDATIONS: 1. It is advised that the patient be started on nasal CPAP at 11 centimeters. 2. It is suggested that he be ordered a [employer] Simplus full face mask size medium. 3. Weight loss is advised in light of the elevation of body mass index at 32.21. 4. If possible the patient should avoid sleeping in the supine position. Typically there is more apnea while supine. 5. The patient should be seen in follow-up between day 31 day 90 after receiving his CPAP. This is for insurance requirements. Copies To 1: Herb Moreno DO; Veena Phelps DO
== END | disposition home or self-care (01) ==
LOC: C.NEUR 20:00
PROVIDERS: ATTEND Internal Medicine Pulmonary Disease
DX: G47.33 Obstructive sleep apnea (adult) (pediatric) (principal); G25.81 Restless legs syndrome; F45.8 Other somatoform disorders

== ENCOUNTER → 2017-08-09 | Outpatient (CLI) | payer OTHER ==
[~2017-08-09] VITALS: Ht 180.3 cm; Wt 101.7 kg
[2017-08-09 16:05] VITALS: BP 115/71; PULSE 75; Ht 180.3 cm; Wt 101.7 kg
== END | disposition home or self-care (01) ==
LOC: C.NEUR 15:18
PROVIDERS: ATTEND Internal Medicine Pulmonary Disease
DX: G47.33 Obstructive sleep apnea (adult) (pediatric) (principal); G25.81 Restless legs syndrome